=== PATIENT | female | born 1970 | race Caucasian/White ===

== ENCOUNTER 2016-04-18 13:03 | Outpatient (CLI) | payer OTHER ==
[~2016-04-18] VITALS: Ht 180.3 cm; Wt 93.2 kg
[~2016-04-18 13:03] MED LIST: CITA10SO5 GTB; DULO30CA47 PO; DULO60CA59 PO; ESTR1TAB80 PO; FLUO40CA PO; FOLI-49 PO; FURO20TA3 PO; GABA-528 PO; LEVO75TA5 PO; PROP40TA4 PO; SPIR50TA PO; THIA100T56 PO; TOPI25CA2 PO
[2016-04-18 13:22] VITALS: BP 117/65; PULSE 84; RESP 18; Ht 180.3 cm; Wt 93.2 kg
--- NOTE | 2016-04-18 13:54 | PN ---
Date/Time of Note Date/Time of Note DATE: 04/18/16 TIME: 13:47 Assessment/Plan Assessment/Plan Assessment/Plan [facility] Progress Note Date of Service: 04/18/16 Today's Assessment & Plan: Overall stable and doing well. No major abdominal complaints. No indication for acute surgical intervention. No worrisome lesion with careful short term follow up. Recommended back to routine liver care with Dr. Mcelroy. I also counseled her again regarding healthier lifestyle including ETOH cessation. With above assessment, I've recommended the following for today: 1. F/u with PCP 2. F/u with Dr. Mcelroy with routine liver surveillance 3. F/u with us prn Thank you again for your great care of this very pleasant young lady and her wonderful family. If there are any questions, please feel free to call me at [phone]. TOTAL VISIT TIME: 20 minutes of which more than half was spent in [id number] discussion with the patient as well as coordination of care between multiple physicians and providers. Disclaimer: Inadvertent spelling and grammatical errors are likely due to EHR/ dictation software use and do not reflect on the quality of delivered patient care. Also, please note that the electronic time recorded on this node does not necessarily reflect the actual time of the visit. Updated Clinical Summary: The patient is a very pleasant 45-year-old lady with past medical history significant for alcohol related cirrhosis, depression, hypothyroidism, and overweight, who is here with signs and symptoms consistent with early cirrhosis likely due to alcohol intake and new MRI lesion discovered May 2015 which is as of yet indeterminate in nature. Patient has had significant issues with alcohol as early as 2011. She has had significant psychologic trauma in the form of of her for 2009 and of her son 11/27/2011. She has had varices and banding October 2011. She has also had hospitalizations for liver disease in 2011. Ascites present. Hepatic encephalopathy present. Rectal bleeding present in 2012 requiring transfusions. She has also a slew of other medical issues. Recent MRI shows a lesion and we were kindly asked consult. Multidisciplinary review 09/21/2015 demonstrated lesion in the liver to be likely a vascular anomaly and not concerning for malignancy. Committee agreed with follow-up MRI within 6 months. 09/26/2015 colonoscopy to the cecum showed mild diverticulosis of the left side of the left side of the colon and moderate size internal hemorrhoids. Liver MRI Mar 2016 showed no focal liver lesions. Comorbidities: 1. Alcoholic cirrhosis, complicated by previous hepatic encephalopathy, ascites , hospitalizations, GI bleeding requiring interventions and transfusions, and abdominal discomfort 2. Still drinking beer 3. Depression 4. Hypothyroidism 5. Hepatitis A immune 6. Overweight (BMI 28.7; previously 27.23 July 2015) 7. Cholestasis 8. Cholelithiasis 9. Status post right knee surgery Nov 2007. Subjective: No major events or complaints since last visit; no major abd pain; no n/v/d; no sob or cp; + flatus; + BM and normal; + activity Objective: Vitals: AVSS (Please also see EHR) Exam: GENERAL: On exam, the patient was sitting up in a chair and appeared to be comfortable and in no acute distress. ABDOMEN: Soft, nontender and nondistended. There are no peritoneal signs or guarding. SKIN: Skin appears to be pink and feels warm to touch. NEUROLOGIC: Patient is awake, alert, and follows commands appropriately. Exam/Review of Systems Vital Signs Vitals Vital Signs Date Time Temp Pulse Resp B/P Pulse Ox O2 Delivery O2 Flow Rate FiO2 04/18/16 13:22 98.1 84 18 117/65 98 Room Air JOCE KING M.D. Apr 18, 2016 13:54
== END 2016-04-18 16:52 | disposition home or self-care (01) ==
LOC: HPC 13:03
PROVIDERS: ATTEND Transplant Surgery
DX: K70.31 Alcoholic cirrhosis of liver with ascites (principal); F10.10 Alcohol abuse, uncomplicated; Y90.9 Presence of alcohol in blood, level not specified; K72.90 Hepatic failure, unspecified without coma; F32.9 Major depressive disorder, single episode, unspecified; E03.9 Hypothyroidism, unspecified; B15.9 Hepatitis A without hepatic coma; K80.51 Calculus of bile duct without cholangitis or cholecystitis with obstruction; E66.3 Overweight; Z68.28 Body mass index [BMI] 28.0-28.9, adult
CPT/HCPCS: G0463

== ENCOUNTER → 2016-08-01 | Outpatient (CLI) | payer OTHER ==
--- NOTE | 2016-08-01 14:17 | RADRPT ---
PROCEDURE: XR pelvis/right hip. CLINICAL INDICATION: Hip pain TECHNIQUE: AP pelvis/AP and lateral right hip views performed COMPARISON: No prior studies are available for comparison. FINDINGS: There is mild to moderate bilateral hip osteoarthrosis. This is associated with joint space narrowin g, subchondral sclerosis and osteophytosis. There is normal mineralization. No fractures or osseou s lesions are identified. The soft tissues are unremarkable. IMPRESSION: Mild to moderate bilateral hip osteoarthrosis. RPTAT: HGDB .Williams Mason MD, MD Date Time Electronically viewed and signed by .Williams Mason MD, on 08/01/2016 14:16 .B/
== END | disposition home or self-care (01) ==
LOC: HKI 10:59
PROVIDERS: ATTEND Orthopaedic Surgery
DX: M25.551 Pain in right hip (principal)
CPT/HCPCS: 73502; Z7500; G0463

== ENCOUNTER 2016-09-11 12:33 | Inpatient (IN) | payer OTHER ==
[~2016-09-11] VITALS: Ht 180.3 cm; Wt 92.0 kg
[~2016-09-11 12:33] MED LIST changes: +CITA10SO GTB; -CITA10SO5 GTB
[2016-09-11] MEDS ORDERED: PANTOPRAZOLE IV 80 MG in SOD CHLORIDE 0.9% 100 ML IV STA (12:45)
[2016-09-11] MEDS ORDERED: CEFTRIAXONE 1 GM/50 ML (PMX) 50 ML IVPB STA (12:45)
[2016-09-11] MEDS ORDERED: PANTOPRAZOLE IV 80 MG in SOD CHLORIDE 0.9% 100 ML IVPB STA (12:45)
[2016-09-11] MEDS ORDERED: ACETAMINOPHEN 325 MG TAB PO STA (12:45)
[2016-09-11] MEDS ORDERED: OCTREOTIDE 50 MCG in SOD CHLORIDE 0.9% 25 ML IVPB STA (12:45)
[2016-09-11] MEDS ORDERED: SODIUM CHLORIDE 0.9% 1L BAG IV* STA (12:45)
[2016-09-11] MEDS ORDERED: OCTREOTIDE 500 MCG in SOD CHLORIDE 0.9% 49 ML IV STA (12:45)
[2016-09-11 13:09] VITALS: TEMP 99.8
[2016-09-11 13:19] LABS: ABNORMAL IP MESSAGE 1; BASOPHIL # 0.1 10^3/ul (0.0-0.1); BASOPHILS % 0.8 % (0.0-2.0); EOSINOPHILS # 0.3 10^3/ul (0.0-0.5); EOSINOPHILS % 4.1 % (0.0-7.0); HEMATOCRIT 32.9 % (37.0-47.0); HEMOGLOBIN 10.9 g/dl (12.0-16.0); LYMPHOCYTES % 15.9 % (15.0-51.0); MEAN CORPUSCULAR HEMOGLOBIN 39.4 pg (29.0-33.0); MEAN CORPUSCULAR HGB CONC 33.1 g/dl (32.0-37.0); MEAN CORPUSCULAR VOLUME 118.8 fl (82.0-101.0); MEAN PLATELET VOLUME 10.9 fl (7.4-10.4); MONOCYTE # 0.7 10^3/ul (0.3-0.9); MONOCYTES % 11.7 % (0.0-11.0); NEUTROPHIL # 4.1 10^3/ul (1.6-7.5); NEUTROPHILS % 66.4 % (39.0-77.0); PLATELET COUNT 83 10^3/UL (140-415); RED BLOOD COUNT 2.77 10^6/ul (4.20-5.40); RED CELL DISTRIBUTION WIDTH 14.6 % (11.5-14.5); WHITE BLOOD COUNT 6.2 10^3/ul (4.8-10.8)
[2016-09-11 13:20] LABS: POSITIVE DIFF @See below
--- NOTE | 2016-09-11 13:21 | RADRPT ---
PROCEDURE: Chest Radiograph. CLINICAL INDICATION: Hematemesis TECHNIQUE: Single frontal chest radiograph. COMPARISON: None available FINDINGS: The cardiomediastinal silhouette is within normal limits. No infiltrate or effusion is seen. Th e bones are intact. IMPRESSION: 1. Unremarkable chest radiograph. RPTAT: AA .Jv Pathak MD, MD Date Time Electronically viewed and signed by .Jv Pathak MD, on 09/11/2016 13:20 .B/
--- NOTE | 2016-09-11 13:29 | ERA ---
ER Documentation Chief Complaint Date/Time DATE: 09/11/16 TIME: 13:26 Chief Complaint vomiting blood and blood in the stoo, hx cirrhosis of the liver, jaundice HPI This is a 46-year-old female history of alcoholic cirrhosis, history of esophageal varices status post banding in 2012 who presents with multiple complaints. She states approximately 5 days ago she had multiple episodes of hematemesis. Since then she has had melanotic stool. She does describe worsening jaundice. She denies any fevers or chills, no abdominal pain, no headache. She does note easy bruising. ROS All systems reviewed and are negative except as per history of present illness. Medications Home Meds Reported Medications Lurasidone Hcl (LATUDA) 20 Mg Tablet, 20 MG PO DAILY, #30 TAB 09/11/16 Topiramate* (Topiramate*) 100 Mg Tablet, 100 MG PO BID, TAB 09/11/16 Pantoprazole* (Protonix*) 40 Mg Tablet.dr, 40 MG PO DAILY, TAB 09/11/16 Levothyroxine Sodium* (Levoxyl*) 88 Mcg Tablet, 88 MCG PO BEFORE BREAKFAST, #30 TAB 09/11/16 Duloxetine Hcl* (Duloxetine Hcl*) 60 Mg Capsule.dr, 60 MG PO DAILY, #30 CAP 09/19/15 Propranolol Hcl* (Propranolol Hcl*) 40 Mg Tablet, 40 MG PO BID, TAB 09/19/13 Furosemide* (Furosemide*) 20 Mg Tablet, 20 MG PO DAILY 12/04/12 Folic Acid* (Folic Acid*) 1 Mg Tablet, 1 MG PO 12/04/12 Discontinued Reported Medications Estrogen,Conj-Medroxyprogest Acet (Prempro) 0.3-1.5 Mg Tablet, 1 TAB PO DAILY, TAB 09/19/15 Fluoxetine Hcl* (Fluoxetine Hcl*) 40 Mg Capsule, 60 MG PO DAILY, CAP 09/19/15 Gabapentin* (Gabapentin*) 800 Mg Tablet, 900 MG PO TID, #90 TAB 09/19/15 Topiramate* (Topiramate*) 25 Mg Cap.sprink, 25 MG PO DAILY, CAP 09/19/15 Levothyroxine Sodium* (Levothyroxine Sodium*) 75 Mcg Tablet, 75 MCG PO BEFORE BREAKFAST, #30 TAB 09/19/15 Duloxetine Hcl* (Duloxetine Hcl*) 30 Mg Capsule.dr, 30 MG PO DAILY, CAP 12/30/13 Citalopram Hydrobromide (Citalopram) 10 Mg/5 Ml Solution, 20 MG GTB DAILY, ML 12/30/13 Spironolactone* (Aldactone*) 50 Mg Tablet, 50 MG PO DAILY, TAB 12/30/13 Thiamine* (Vitamin B-1*) 100 Mg Tablet, 100 MG PO DAILY, TAB 09/19/13 Allergies Allergies: Coded Allergies: naproxen (Verified Allergy, Severe, 09/11/16) codeine (Verified Allergy, Mild, NAUSEA, 09/11/16) morphine (Verified Allergy, Unknown, NAUSEA, 09/11/16) PMhx/Soc History of Surgery: Yes (RIGHT KNEE) Anesthesia Reaction: No Hx Neurological Disorder: Yes (NEUROPATHY) Hx Respiratory Disorders: No Hx Cardiac Disorders: No Hx Psychiatric Problems: Yes (DEPRESSION/ANCIETY) Hx Miscellaneous Medical Probl: Yes (CIRRHOSIS , ESOPHOGEAL VARCIES , ANEMIA ) Hx Alcohol Use: Yes (DAILY BEER) Hx Substance Use: No Hx Tobacco Use: No (QUIT 08/27/16) Smoking Status: Former smoker FmHx Family History: No diabetes Physical Exam Vitals Vital Signs Date Time Temp Pulse Resp B/P Pulse Ox O2 Delivery O2 Flow Rate FiO2 09/11/16 13:09 99.8 105 17 115/73 97 Room Air 09/11/16 12:34 100.2 106 18 117/58 98 Physical Exam General: Extremely jaundice Head: Normocephalic, atraumatic. Eyes: Pupils equally reactive, EOM intact, scleral icterus ENT: Moist mucous membranes Neck: Supple, no lymphadenopathy Respiratory: Lungs clear bilaterally, no distress Cardiovascular: RRR, no murmurs, rubs, or gallops Abdominal: Soft, non-tender, non-distended, no peritoneal signs : Deferred MSK: No edema, no unilateral swelling, 5/5 strength Neurologic: Alert and oriented, moving all extremities, normal speech, no focal weakness, no cerebellar signs Skin: Mild purpura and ecchymoses noted over extremities Psych: Normal mood Result Diagram: 09/11/16 1300 09/11/16 1300 Results 24 hrs Laboratory Tests Test 09/11/16 13:00 White Blood Count 6.210^3/ul Red Blood Count 2.7710^6/ul Hemoglobin 10.9g/dl Hematocrit 32.9% Mean Corpuscular Volume 118.8fl Mean Corpuscular Hemoglobin 39.4pg Mean Corpuscular Hemoglobin Concent 33.1g/dl Red Cell Distribution Width 14.6% Platelet Count 8310^3/UL Mean Platelet Volume 10.9fl Neutrophils % 66.4% Lymphocytes % 15.9% Monocytes % 11.7% Eosinophils % 4.1% Basophils % 0.8% Nucleated Red Blood Cells % 0.0/100WBC Neutrophils # 4.110^3/ul Lymphocytes # 1.010^3/ul Monocytes # 0.710^3/ul Eosinophils # 0.310^3/ul Basophils # 0.110^3/ul Nucleated Red Blood Cells # 0.010^3/ul Prothrombin Time 16.4Sec Prothrombin Time Ratio 1.3 INR International Normalized Ratio 1.31 Activated Partial Thromboplast Time 33.3Sec Sodium Level 143mmol/L Potassium Level 2.5mmol/L Chloride Level 96mmol/L Carbon Dioxide Level 28mmol/L Anion Gap 22 Blood Urea Nitrogen 11mg/dl Creatinine 0.94mg/dl Glucose Level 85mg/dl Lactic Acid Level 2.4mmol/L Calcium Level 9.3mg/dl Total Bilirubin 24.9mg/dl Direct Bilirubin 21.90mg/dl Indirect Bilirubin 3.0mg/dl Aspartate Amino Transf (AST/SGOT) 208IU/L Alanine Aminotransferase (ALT/SGPT) 79IU/L Alkaline Phosphatase 584IU/L Troponin I < 0.012ng/ml Total Protein 9.3g/dl Albumin 3.8g/dl Globulin 5.50g/dl Albumin/Globulin Ratio 0.69 Current Medications Medications (Trade) Dose Ordered Sig/Pravin Route PRN Reason Start Time Stop Time Status Last Admin Dose Admin Pantoprazole 80 mg/Sodium Chloride 100 ml @ 400 mls/hr ONCE STAT IVPB 09/11/16 12:45 09/11/16 12:59 DC 09/11/16 14:06 Pantoprazole 80 mg/Sodium Chloride 100 ml @ 10 mls/hr ONCE STAT IV 09/11/16 12:45 09/11/16 22:44 Octreotide Acetate 50 mcg/ Sodium Chloride 26 ml @ 100 mls/hr Q16M STAT IVPB 09/11/16 12:45 09/11/16 13:00 DC 09/11/16 14:06 Octreotide Acetate/Sodium Chloride (Sandostatin/NS) 50 ml @ 5 mls/hr ONCE STAT IV 09/11/16 12:45 09/11/16 22:44 Acetaminophen 650 mg 650 mg ONCE STAT PO 09/11/16 12:45 09/11/16 12:48 DC Ceftriaxone Sodium (Rocephin) 50 ml @ 100 mls/hr ONCE STAT IVPB 09/11/16 12:45 09/11/16 13:14 DC 09/11/16 13:45 Sodium Chloride 2850 ml 2,850 ml BOLUS OVER 2 HOURS STAT IV* 09/11/16 12:45 09/11/16 12:48 DC 09/11/16 12:45 Potassium Chloride (KCl 10 MEQ/50 ML SW) 50 ml @ 50 mls/hr Q1H IVPB 09/11/16 14:30 09/11/16 17:29 09/11/16 14:22 Ondansetron HCl (Zofran Inj) 4 mg BRIDGE ORDER PRN IV NAUSEA AND/OR VOMITING 09/11/16 15:00 09/12/16 14:59 Acetaminophen 650 mg 650 mg ER BRIDGE PRN PO MILD PAIN/FEVER 09/11/16 15:00 09/12/16 14:59 Potassium Chloride (KCl 40 MEQ/250 ML NS) 250 ml @ 62.5 mls/hr Q4H IVPB 09/11/16 15:00 09/11/16 22:59 UNV Procedures/MDM EKG, MONITORS, & DIAGNOSTIC IMAGING: EKG: I reviewed and interpreted a 12-lead EKG. Rhythm: Normal sinus rhythm Ectopy: None Intervals: No abnormalities ST segments: No elevations or depressions T waves: No contiguous inversions Chest x-ray: I reviewed and interpreted a 1 view of the chest Mediastinum: No enlargement Cardiac silhouette: No cardiomegaly Airspace: Clear lung gardner bilaterally without evidence of pneumothorax Bones: No evidence of fracture LAB INTERPRETATION: No significant leukocytosis, hemoglobin of 10 thrombocytopenia of 83, hypokalemia of 2.5, lactic acidosis of 2.4, significant direct hyperbilirubinemia of 21, transaminitis, negative troponin MEDICAL DECISION MAKING: The patient presents with signs and symptoms consistent with likely subacute upper GI hemorrhage in the setting of esophageal varices. However the patient is at risk for persistent bleeding. I believe she will benefit from inpatient hospitalization, GI consultation and semi-urgent endoscopy. The patient will be started on PPI, octreotide and given antibiotics. The patient did have a low -grade fever at triage however rechecked without intervention and is normal. Low concern for sepsis, no evidence of SBP. ER COURSE: 2 large-bore peripheral IVs were inserted. The patient was given a 30 cc/kg bolus of saline. The patient remains hemodynamically stable in the emergency room. The patient does not have a fever. The patient has been given medications as documented above including PPI, octreotide, empiric antibiotics. Lactic acid is likely in the setting of dehydration rather than sepsis. Potassium will be repleted through the IV. The patient only has [address] Montgomery was notified he agrees with the plan of care. I kept the patient and/or family informed of laboratory and diagnostic imaging results throughout the emergency room course. DISPOSITION PLAN: Medical surgical admission for further management of subacute upper GI bleed. CONSULTATION: Accepting care team and consultations: I discussed the current laboratory data, diagnostic imaging and emergency care provided. Admitting team: Dr. Seth Admitting team indication: Insurance directed Consulting services: [employer] Dr. Montgomery Prior to admission the patient is hemodynamically stable and resting comfortably. Departure Diagnosis: Primary Impression: Upper GI hemorrhage Additional Impressions: History of esophageal varices History of cirrhosis Thrombocytopenia Hypokalemia Lactic acidosis Condition: HARINI Chu MD Sep 11, 2016 13:29
[2016-09-11 13:38] LABS: INR 1.31; PROTIME 16.4 Sec (12.2-14.2); PT RATIO 1.3
[2016-09-11 13:39] LABS: PARTIAL THROMBOPLASTIN TIME 33.3 Sec (25.0-35.0)
[2016-09-11 13:43] LABS: ALANINE AMINOTRANSFERASE 79 IU/L (13-69); ALBUMIN 3.8 g/dl (3.3-4.9); ALBUMIN/GLOBULIN RATIO 0.69; ALKALINE PHOSPHATASE 584 IU/L (42-121); ANION GAP 22 (8-16); ASPARTATE AMINO TRANSFERASE 208 IU/L (15-46); BILIRUBIN,TOTAL 24.9 mg/dl (0.2-1.3); BLOOD UREA NITROGEN 11 mg/dl (7-20); CALCIUM 9.3 mg/dl (8.4-10.2); CARBON DIOXIDE 28 mmol/L (21-31); CHLORIDE 96 mmol/L (97-110); CREATININE 0.94 mg/dl (0.44-1.00); GLUCOSE 85 mg/dl (70-220); SODIUM 143 mmol/L (135-144); TOTAL PROTEIN 9.3 g/dl (6.1-8.1)
[2016-09-11 13:57] LABS: POTASSIUM 2.5 mmol/L (3.5-5.1)
[2016-09-11 14:01] LABS: TROPONIN-I < 0.012 ng/ml (0.00-0.12)
[2016-09-11] MEDS ORDERED: PANT40TA3 PO (14:13)
[2016-09-11] MEDS ORDERED: LEVO88TA42 PO (14:13)
[2016-09-11] MEDS ORDERED: TOPI-25 PO (14:14)
[2016-09-11] MEDS ORDERED: LURA20TA PO (14:15)
[2016-09-11] MEDS: POTASSIUM CHLORIDE 50 ML IVPB SCH ×3 (14:22→18:53)
--- NOTE | 2016-09-11 14:35 | HP ---
Date/Time of Note Date/Time of Note DATE: 09/11/16 TIME: 14:35 Assessment/Plan VTE Prophylaxis VTE Prophylaxis Intervention: SCD's Assessment/Plan Assessment/Plan 46 yo F with pmhx alcoholic cirrhosis cb EVs warranting banding presents with c/ o dark stools, hematemesis and jaundice. #hematemesis/dark stools: concern for GIB, possible EV bleed -GI following, plan for EGD in AM -cont rocephin (1g/day x 7 days total), PPI drip, somatostatin drip as per GI rec -defer transfusion as long as hgb>7-->BID CBCs #jaundice: suspect 2/2 hyperbilirubinemia likely 2/2 alcoholic cirrhosis -check liver US -start high dose prednisolone (40 mg daily, x 28 days) as Maddreys Discriminant Function score 40.6 consider checking Lille score/rechecking DF in 1 week to monitor for improvement from steroids #hypokalemia: suspect from vomiting -replete -hold lasix #cirrhosis -cont home beta angela of note, bb may increase risk to pt of kidney disease given her advanced alcoholic cirrhosis however given pt is here for possible EVs suspect benefit of this medication outweighs risk at this time. defer to GI -hold lasis given hypokalemia. will likely resume tomorrow -RD eval #R foot/ankle pain sp fall -xrs ordered, possible PT eval #alcoholism: last drink 1 week ago -cessation advised -cont home folic acid #h/o anxiety -cont home Remeron, cymbalta, latuda #h/o hypothyroid: cont home synthroid DVT prophx: SCDs only given concern for variceal bleed NPO pending EGD HPI/ROS Admit Date/Time Admit Date/Time Hx of Present Illness 46 yo F with pmhx alcoholic cirrhosis c/b EVs requiring banding presents with c/ o 1 week of new jaundice and 5 days of dark stools and hematemesis. +nausea. Also reports mild increase in abd distension. +itching since jaundice onset. +subjective fevers at home, no chills. Pt states her last drink of alcohol was 7 days [employer], before that was drinking 6 beers/day. Also states she tripped on her R ankle last week at home and has been unable to weight bear on that foot/ankle since. PMH/Family/Social Past Medical History alcohol abuse, cirrhosis cb EV warranting banding Social History Smoking Status: Former smoker Exam/Review of Systems Vital Signs Vitals Vital Signs Date Time Temp Pulse Resp B/P Pulse Ox O2 Delivery O2 Flow Rate FiO2 09/11/16 13:09 99.8 105 17 115/73 97 Room Air Exam Exam jaundice and scleral icterus EOMI MMM no asterixis no mrg lungs clear abd soft, mild distension no L ankle edema, R ankle and forefoot with sig bruising and swelling, no sig ttp responds to questions appropriately labs reviewed. bilis markedly elevated, +transaminitis. hgb >7 [facility] Discriminant Function: 40.6 Labs Result Diagram: 09/11/16 1300 09/11/16 1300 Medications Medications Current Medications Potassium Chloride (KCl 10 MEQ/50 ML SW) 50 ml @ 50 mls/hr Q1H IVPB Last administered on 09/11/16t 14:22; Admin Dose 50 MLS/HR; Start 09/11/16 at 14:30; Stop 09/11/16 at 17:29 DK CISSE MD Sep 11, 2016 14:35
[2016-09-11] MEDS ORDERED: ACETAMINOPHEN 325 MG TAB PO PRN (15:00)
[2016-09-11] MEDS ORDERED: NACL 0.9% 3 ML SYG IV SCH (15:00)
[2016-09-11] MEDS ORDERED: ONDANSETRON 4 MG TAB PO PRN (15:00)
[2016-09-11] MEDS ORDERED: MAGNESIUM HYDROXIDE 30ML CUP PO PRN (15:00)
[2016-09-11] MEDS ORDERED: DOCUSATE SODIUM 100 MG CAP PO PRN (15:00)
[2016-09-11] MEDS ORDERED: ONDANSETRON 4 MG INJ IV PRN (15:00)
[2016-09-11] MEDS ORDERED: POTASSIUM CHLORIDE 250 ML IVPB SCH (15:00)
[2016-09-11 16:30] VITALS: PULSE 80
[2016-09-11] MEDS ORDERED: MIRT15TA5 PO (16:58)
[2016-09-11 17:00] VITALS: BP 98/62; PULSE 80; RESP 17
[2016-09-11] MEDS ORDERED: MIRTAZAPINE 15 MG TAB PO PRN (17:00)
[2016-09-11 17:15] VITALS: Ht 180.3 cm; Wt 92.0 kg
--- NOTE | 2016-09-11 17:17 | CONS ---
Date/Time of Note Date/Time of Note DATE: 09/11/16 TIME: 16:59 Assessment/Plan Assessment/Plan Additional Assessment/Plan Assessment * Hypokalemia * Hematemesis R/O bleeding esophageal varices vs bleeding peptic ulcer vs others * Jaundice * Cirrhosis,liver * HX of alcoholism Plan * EGD tomorrow risks and benefit explained to patient and agreed with the planned procedure * Octreotide drip * Protonix drip * Monitor hemoglobin and hematocrit and transfuse per protocol * trend liver enzymes * further orders will depend on clinical course Consultation Date/Type/Reason Admit Date/Time Date of Consultation: Sep 11, 2016 Type of Consultation: Gastroenterology Reason for Consultation hematemesis/jaundice Referring Provider: DK CISSE MD Hx of Present Illness 46 year old female with past medical history of alcoholic liver cirrhosis, history of esophageal varices presented in the emergency room complaining of hematemesis and jaundice.Patient was apparently well until 2 weeks ago when she develop progressive darkening of sclera progressing to jaundice,with associated on and off hematemesis about 1/3 cup per episode.She denies any history of travel,fever ,hematochezia nor abdominal pain.She also claims that 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 her for liver cirrhosis,had EGD last year with variceal banding,took latuda last month.Emergency room course revealed hemoglobin 10.9,hematocrit 32.9,total bilirubin 24.9,lactic acid 2.4 ,K 2.5 AST 308,ALT 79,alkaline phosphatase 501 Constitutional: improved, no complaints Eyes: no complaints ENT: no complaints Respiratory: no complaints Cardiovascular: no complaints Gastrointestinal: blood, flatus, nausea, pain, vomiting Genitourinary: no complaints Musculoskeletal: no complaints Skin: other (jaundice) Neurologic: no complaints Endocrine: no complaints Lymphatic: no complaints Psychological: nl mood/affect, no complaints Immunologic: no complaints Past Medical History Medical History: GI bleed, other (cirrhosis) Past Surgical History Past Surgical Hx: endoscopy Family History Significant Family History: no pertinent family hx Social History Smoking Status: Former smoker Exam/Review of Systems Vital Signs Vitals Vital Signs Date Time Temp Pulse Resp B/P Pulse Ox O2 Delivery O2 Flow Rate FiO2 09/11/16 16:30 80 09/11/16 16:01 20 112/66 98 Room Air 09/11/16 13:09 99.8 Exam Constitutional: alert, oriented, well developed Psych: nl mood/affect, no complaints Head: atraumatic, normocephalic Eyes: PERRL, icteric, nl conjunctiva ENMT: nl nasal mucosa & septum Neck: non-tender, supple Respiratory: clear to auscultation, normal air movement Cardiovascular: nl pulses, regular rate and rhythm Gastrointestinal: nl liver, spleen, non-tender, soft Musculoskeletal: nl extremities to inspection, nl gait and stance Extremities: normal pulses Neurological: nl mental status, nl speech, nl strength Skin: nl turgor, other (jaundice), No rash or lesions Lymph: nl lymph nodes Results Result Diagram: 09/11/16 1300 09/11/16 1300 Results 24 hrs Laboratory Tests Test 09/11/16 13:00 09/11/16 15:00 White Blood Count 6.2 Red Blood Count 2.77 L Hemoglobin 10.9 L Hematocrit 32.9 L Mean Corpuscular Volume 118.8 H Mean Corpuscular Hemoglobin 39.4 H Mean Corpuscular Hemoglobin Concent 33.1 Red Cell Distribution Width 14.6 H Platelet Count 83 L Mean Platelet Volume 10.9 H Neutrophils % 66.4 Lymphocytes % 15.9 Monocytes % 11.7 H Eosinophils % 4.1 Basophils % 0.8 Nucleated Red Blood Cells % 0.0 Neutrophils # 4.1 Lymphocytes # 1.0 Monocytes # 0.7 Eosinophils # 0.3 Basophils # 0.1 Nucleated Red Blood Cells # 0.0 Prothrombin Time 16.4 H Prothrombin Time Ratio 1.3 INR International Normalized Ratio 1.31 Activated Partial Thromboplast Time 33.3 Sodium Level 143 Potassium Level 2.5 *L Chloride Level 96 L Carbon Dioxide Level 28 Anion Gap 22 H Blood Urea Nitrogen 11 Creatinine 0.94 Glucose Level 85 Lactic Acid Level 2.4 *H 1.3 Calcium Level 9.3 Total Bilirubin 24.9 H Direct Bilirubin 21.90 *H Indirect Bilirubin 3.0 H Aspartate Amino Transf (AST/SGOT) 208 H Alanine Aminotransferase (ALT/SGPT) 79 H Alkaline Phosphatase 584 H Troponin I < 0.012 Total Protein 9.3 H Albumin 3.8 Globulin 5.50 H Albumin/Globulin Ratio 0.69 Medications Medications Current Medications Potassium Chloride (KCl 10 MEQ/50 ML SW) 50 ml @ 50 mls/hr Q1H IVPB Last administered on 09/11/16t 15:36; Admin Dose 50 MLS/HR; Start 09/11/16 at 14:30; Stop 09/11/16 at 17:29 Duloxetine HCl (Cymbalta) 60 mg DAILY PO ; Start 09/12/16 at 09:00 Folic Acid (Folic Acid) 1 mg DAILY PO ; Start 09/12/16 at 09:00 Propranolol HCl (Inderal) 40 mg BID PO ; Start 09/11/16 at 21:00 Topiramate (Topamax) 100 mg BID PO ; Start 09/11/16 at 21:00 Miscellaneous Information 20 mg DAILY PO ; Start 09/12/16 at 09:00; Status UNV Ondansetron HCl (Zofran Tab) 4 mg Q6H PRN PO NAUSEA AND/OR VOMITING; Start at 15:00 Ondansetron HCl (Zofran Inj) 4 mg Q6H PRN IV NAUSEA AND/OR VOMITING; Start at 15:00 Acetaminophen/ Hydrocodone Bitart ([place] (5/325)) 1 tab Q6H PRN PO MODERATE PAIN LEVEL 4-6; Start 09/11/16 at 15:00 Morphine Sulfate (morphine) 2 mg Q4H PRN IV SEVERE PAIN LEVEL 7-10; Start 09/11 at 15:00 Docusate Sodium (Colace) 100 mg Q12H PRN PO CONSTIPATION; Start 09/11/16 at 15: 00 Magnesium Hydroxide (Milk Of Mag) 30 ml DAILY PRN PO CONSTIPATION; Start at 15:00 MARGY DEL CID MD Sep 11, 2016 17:10
--- NOTE | 2016-09-11 18:12 | RADRPT ---
PROCEDURE: US Abdomen and Retroperitoneum. CLINICAL INDICATION: History of cirrhosis. Jaundice. TECHNIQUE: Multiple real-time longitudinal and transverse images were acquired of the patient's ab domen and retroperitoneum utilizing a curved array transducer. COMPARISON: No prior studies are available for comparison. FINDINGS: The liver is normal in size and diffusely heterogeneous in echogenicity. The liver has a normal smo oth surface. There is no focal hepatic lesion. Color Doppler and pulsed Doppler sonography demonstra te normal antegrade flow in the portal vein. Multiple gallstones are present in the gallbladder. There is no gallbladder wall thickening or flui d around the gallbladder. The bile ducts are normal with the common bile duct measuring 3.8 mm in diameter. The spleen is enlarged measuring 14.8 x 5.8 cm. There is no focal splenic lesion. The pancreas is partially seen and is unremarkable. There is no free fluid. The right kidney measures 11.7 x 4.6 x 5.4 cm and the left kidney measures 10.3 x 4.2 x 4.5 cm. There is no renal mass. There is no hydronephrosis or calculus. The abdominal aorta is not dilated. The inferior vena cava is unremarkable. IMPRESSION: 1. Diffusely heterogeneous liver which may indicate cirrhosis. No focal hepatic lesion. 2. Gallstones in the gallbladder. No evidence of cholecystitis. 3. Splenomegaly. 4. Otherwise unremarkable ultrasound of the abdomen and retroperitoneum. RPTAT: QQ .Esau Soto MD, Date Time Electronically viewed and signed by .Esau Soto MD, on 09/11/2016 18:12 .R/
[2016-09-11] MEDS: PANTOPRAZOLE IV 80 MG in SOD CHLORIDE 0.9% 100 ML IV SCH (18:54)
[2016-09-11] MEDS: predniSOLONE 5 MG TAB PO SCH (18:55)
[2016-09-11] MEDS: OCTREOTIDE 1 MG in SOD CHLORIDE 0.9% 95 ML IV SCH (18:55)
[2016-09-11 20:06] VITALS: PULSE 79
[2016-09-11 20:13] VITALS: BP 112/68; RESP 20
[2016-09-11] MEDS: PROPRANOLOL 40 MG TAB PO SCH (20:57)
[2016-09-11] MEDS: TOPIRAMATE 100 MG TAB PO SCH (20:58)
[2016-09-11 21:10] LABS: ABNORMAL IP MESSAGE 1; BASOPHILS % 0.7 % (0.0-2.0); EOSINOPHILS # 0.2 10^3/ul (0.0-0.5); EOSINOPHILS % 3.4 % (0.0-7.0); HEMATOCRIT 29.2 % (37.0-47.0); HEMOGLOBIN 9.7 g/dl (12.0-16.0); LYMPHOCYTES # 0.6 10^3/ul (0.8-2.9); LYMPHOCYTES % 14.1 % (15.0-51.0); MEAN CORPUSCULAR HEMOGLOBIN 40.2 pg (29.0-33.0); MEAN CORPUSCULAR HGB CONC 33.2 g/dl (32.0-37.0); MEAN CORPUSCULAR VOLUME 121.2 fl (82.0-101.0); MEAN PLATELET VOLUME 11.2 fl (7.4-10.4); MONOCYTE # 0.5 10^3/ul (0.3-0.9); MONOCYTES % 10.5 % (0.0-11.0); NEUTROPHIL # 3.1 10^3/ul (1.6-7.5); NEUTROPHILS % 70.4 % (39.0-77.0); PLATELET COUNT 52 10^3/UL (140-415); RED BLOOD COUNT 2.41 10^6/ul (4.20-5.40); RED CELL DISTRIBUTION WIDTH 14.8 % (11.5-14.5); WHITE BLOOD COUNT 4.4 10^3/ul (4.8-10.8)
[2016-09-11 21:12] LABS: POSITIVE DIFF @See below
--- NOTE | 2016-09-11 22:30 | RADRPT ---
AMENDMENT: 09/11/2016 10:31:06 PM Gaudencio Muniz M.D Please note that the recommendation and the second impression should correctly read: If there is co ncern for talocalcaneal dislocation, CT is recommended as follow up. PROCEDURE: XR right Ankle. CLINICAL INDICATION: Status post fall. Pain. TECHNIQUE: AP possible midtarsal dislocation. lateral views of the right ankle were performed. COMPARISON: None. FINDINGS: No gross evidence of fracture. There is rotation at the level of the talocalcaneal joint raising th e question of talocalcaneal dislocation. This may be positional in nature. Oblique views or CT may be considered for further evaluation. Correlate with direct inspection. The bones are normal mineralization without cortical destruction. The talar dome is intact and ankle joint mortise well maintained. The remaining bones of the foot an d ankle are unremarkable. Mild periarticular soft tissue swelling. IMPRESSION: 1. No evidence of fracture. Mild periarticular soft tissue swelling. 2. There is rotation at the level of the talocalcaneal joint. Correlate with direct inspection. T here is concern for talocalcaneal dislocation, CT is recommended as follow up. RPTAT:AAJJ Physician Ty Date Time Electronically viewed and signed by Physician Ty on 09/11/2016 22:33 MAJO/
--- NOTE | 2016-09-11 22:32 | RADRPT ---
PROCEDURE: XR right foot. CLINICAL INDICATION: Status post fall. Pain. TECHNIQUE: AP possible midtarsal dislocation. lateral views of the right ankle were performed. COMPARISON: None. FINDINGS: No gross evidence of fracture. There is rotation at the level of the talocalcaneal joint raising th e question of talocalcaneal dislocation. This may be positional in nature. Correlate with direct i nspection. The remaining bones of the foot and ankle are unremarkable. The bones are normal mineralization without cortical destruction. Mild periarticular soft tissue swelling. IMPRESSION: 1. No evidence of fracture. Mild periarticular soft tissue swelling. 2. There is rotation at the level of the talocalcaneal joint. Correlate with direct inspection. I f there is concern for talocalcaneal dislocation, CT is recommended as follow up .The remaining bone s of the foot are unremarkable. RPTAT:AAJJ Physician Ty Date Time Electronically viewed and signed by Physician Ty on 09/11/2016 22:31 MAJO/
[2016-09-11] MEDS: HYDROCODONE/APAP (5/325) TAB PO PRN (22:37)
[2016-09-12] VITALS (20 sets, daily range): BP systolic 99–156; BP diastolic 58–95; PULSE 72–90; RESP 16–33
[2016-09-12] MEDS: OCTREOTIDE 1 MG in SOD CHLORIDE 0.9% 95 ML IV SCH (05:31)
[2016-09-12] MEDS: PANTOPRAZOLE IV 80 MG in SOD CHLORIDE 0.9% 100 ML IV SCH ×3 (05:31→19:34)
[2016-09-12] MEDS: LEVOTHYROXINE 88 MCG TAB PO SCH (05:37)
[2016-09-12 08:11] LABS: ABNORMAL IP MESSAGE 1; BASOPHILS % 0.3 % (0.0-2.0); EOSINOPHILS % 0.3 % (0.0-7.0); HEMOGLOBIN 9.9 g/dl (12.0-16.0); LYMPHOCYTES # 0.5 10^3/ul (0.8-2.9); LYMPHOCYTES % 12.8 % (15.0-51.0); MEAN CORPUSCULAR HEMOGLOBIN 38.7 pg (29.0-33.0); MEAN CORPUSCULAR HGB CONC 31.9 g/dl (32.0-37.0); MEAN CORPUSCULAR VOLUME 121.1 fl (82.0-101.0); MEAN PLATELET VOLUME 11.3 fl (7.4-10.4); MONOCYTE # 0.2 10^3/ul (0.3-0.9); MONOCYTES % 4.7 % (0.0-11.0); NEUTROPHIL # 2.9 10^3/ul (1.6-7.5); NEUTROPHILS % 81.1 % (39.0-77.0); PLATELET COUNT 58 10^3/UL (140-415); RED BLOOD COUNT 2.56 10^6/ul (4.20-5.40); RED CELL DISTRIBUTION WIDTH 14.6 % (11.5-14.5); WHITE BLOOD COUNT 3.6 10^3/ul (4.8-10.8)
[2016-09-12 08:21] LABS: POSITIVE DIFF @See below
[2016-09-12] MEDS: [UNRECOGNIZED DRUG - REMARK] XX SCH ×2 (08:25→16:30)
[2016-09-12] MEDS: CEFTRIAXONE 1 GM/50 ML (PMX) 50 ML IVPB SCH (08:31)
[2016-09-12] MEDS: FOLIC ACID 1 MG TAB PO SCH (08:34)
[2016-09-12] MEDS: predniSOLONE 5 MG TAB PO SCH (08:35)
[2016-09-12] MEDS: TOPIRAMATE 100 MG TAB PO SCH ×2 (08:35→20:49)
[2016-09-12] MEDS: DULOXETINE 30 MG CAP DR PO SCH (08:36)
[2016-09-12 08:37] LABS: ALBUMIN 3.5 g/dl (3.3-4.9); ALBUMIN/GLOBULIN RATIO 0.72; BILIRUBIN,INDIRECT 2.9 mg/dl (0-1.1); CALCIUM 8.8 mg/dl (8.4-10.2); CREATININE 0.97 mg/dl (0.44-1.00); POTASSIUM 3.2 mmol/L (3.5-5.1); TOTAL PROTEIN 8.3 g/dl (6.1-8.1)
[2016-09-12] MEDS: PROPRANOLOL 40 MG TAB PO SCH ×2 (08:37→20:51)
[2016-09-12 08:43] LABS: BILIRUBIN,DIRECT 21.6 mg/dl (0.00-0.20); BILIRUBIN,TOTAL 24.5 mg/dl (0.2-1.3)
[2016-09-12] MEDS ORDERED: PANTOPRAZOLE (EC) 40 MG TAB PO SCH (09:00)
[2016-09-12] MEDS ORDERED: NON-FORMULARY/PATIENT OWN MED (Lurasidone Hcl (Latuda) 20 MG) PO SCH (09:00)
[2016-09-12] MEDS ORDERED: POTASSIUM CHLORIDE 250 ML IVPB ONE (09:00)
[2016-09-12] MEDS: ONDANSETRON 4 MG INJ IV PRN ×2 (10:48→18:00)
--- NOTE | 2016-09-12 15:53 | PN ---
Date/Time of Note Date/Time of Note DATE: 09/12/16 TIME: 15:46 Assessment/Plan VTE Prophylaxis VTE Prophylaxis Intervention: SCD's Lines/Catheters Urinary Cath still in place: No Assessment/Plan Assessment/Plan 1. Upper GI bleeding on protonix, EGD per GI 2. Jaundice, likely obstructive with high direct jacob, MRCP 3. Alcoholic liver disease 4. Alcoholism, watch for withdrawal 5. foot/ankle pain sp fall 6. hypothyroidism, on synthroid DVT prophx: SCD Subjective 24 Hr Interval Summary Free Text/Dictation epigastric pain. no vomiting Exam/Review of Systems Vital Signs Vitals Vital Signs Date Time Temp Pulse Resp B/P Pulse Ox O2 Delivery O2 Flow Rate FiO2 09/12/16 15:02 98.1 67 18 99/62 96 09/11/16 17:00 Room Air Intake and Output 09/11/16 09/11/16 09/12/16 15:00 23:00 07:00 Intake Total 176 ml 500 ml Output Total 900 ml Balance 176 ml -400 ml Exam Constitutional: alert, oriented, well developed Psych: nl mood/affect, no complaints Head: atraumatic, normocephalic Eyes: EOMI, PERRL, nl lids ENMT: mucosa pink and moist, nl external ears & nose, nl lips & teeth, nl nasal mucosa & septum Neck: non-tender, supple Respiratory: clear to auscultation, normal air movement, No congested cough, No crackles/rales, No diminished breath sounds, No intercostal retraction, No labored breathing, No other, No respirations, No tactile fremitus, No wheezing Cardiovascular: nl pulses, regular rate and rhythm, No S3, No S4, No bruits, No diastolic murmur, No edema, No gallop, No irregular rhythm, No jugular venous distention (JVD), No murmurs/extra sounds, No other, No rub, No systolic murmur Gastrointestinal: other (epigastric tenderness), soft Musculoskeletal: nl extremities to inspection Extremities: normal pulses, No calf tenderness, No clubbing, No cyanosis, No edema, No other, No palpable cord, No pitting pedal edema, No tenderness Neurological: THERMAL ENGINEER II-XII intact, nl mental status, nl speech, nl strength Results Result Diagram: 09/12/16 0734 09/12/16 0734 Results 24 hrs Laboratory Tests Test 09/11/16 17:39 09/11/16 20:59 09/12/16 07:34 Lactic Acid Level 1.5 White Blood Count 4.4 #L 3.6 L Red Blood Count 2.41 L 2.56 L Hemoglobin 9.7 L 9.9 L Hematocrit 29.2 L 31.0 L Mean Corpuscular Volume 121.2 H 121.1 H Mean Corpuscular Hemoglobin 40.2 H 38.7 H Mean Corpuscular Hemoglobin Concent 33.2 31.9 L Red Cell Distribution Width 14.8 H 14.6 H Platelet Count 52 #L 58 L Mean Platelet Volume 11.2 H 11.3 H Neutrophils % 70.4 81.1 H Lymphocytes % 14.1 L 12.8 L Monocytes % 10.5 4.7 Eosinophils % 3.4 0.3 Basophils % 0.7 0.3 Nucleated Red Blood Cells % 0.0 0.0 Neutrophils # 3.1 2.9 Lymphocytes # 0.6 L 0.5 L Monocytes # 0.5 0.2 L Eosinophils # 0.2 0.0 Basophils # 0.0 0.0 Nucleated Red Blood Cells # 0.0 0.0 Sodium Level 147 H Potassium Level 3.2 L Chloride Level 109 # Carbon Dioxide Level 23 Anion Gap 18 H Blood Urea Nitrogen 10 Creatinine 0.97 Glucose Level 155 Calcium Level 8.8 Magnesium Level 2.2 Total Bilirubin 24.5 H Direct Bilirubin 21.60 *H Indirect Bilirubin 2.9 H Aspartate Amino Transf (AST/SGOT) 155 H Alanine Aminotransferase (ALT/SGPT) 65 Alkaline Phosphatase 458 H Total Protein 8.3 H Albumin 3.5 Globulin 4.80 H Albumin/Globulin Ratio 0.72 Medications Medications Current Medications Duloxetine HCl (Cymbalta) 60 mg DAILY PO Last administered on 09/12/16 08:36; Admin Dose 60 MG; Start 09/12/16 at 09:00 Folic Acid (Folic Acid) 1 mg DAILY PO Last administered on 09/12/16 08:34; Admin Dose 1 MG; Start 09/12/16 at 09:00 Propranolol HCl (Inderal) 40 mg BID PO Last administered on 09/12/16 08:37; Admin Dose 40 MG; Start 09/11/16 at 21:00 Topiramate (Topamax) 100 mg BID PO Last administered on 09/12/16 08:35; Admin Dose 100 MG; Start 09/11/16 at 21:00 Miscellaneous Information 20 mg DAILY PO ; Start 09/12/16 at 09:00; Status UNV Ondansetron HCl (Zofran Tab) 4 mg Q6H PRN PO NAUSEA AND/OR VOMITING; Start at 15:00 Ondansetron HCl (Zofran Inj) 4 mg Q6H PRN IV NAUSEA AND/OR VOMITING Last administered on 09/12/16 10:48; Admin Dose 4 MG; Start 09/11/16 at 15:00 Acetaminophen/ Hydrocodone Bitart ([place] (5/325)) 1 tab Q6H PRN PO MODERATE PAIN LEVEL 4-6 Last administered on 09/11/16 22:37; Admin Dose 1 TAB; Start at 15:00 Morphine Sulfate (morphine) 2 mg Q4H PRN IV SEVERE PAIN LEVEL 7-10; Start 09/11 at 15:00 Docusate Sodium (Colace) 100 mg Q12H PRN PO CONSTIPATION; Start 09/11/16 at 15: 00 Magnesium Hydroxide (Milk Of Mag) 30 ml DAILY PRN PO CONSTIPATION; Start at 15:00 Mirtazapine (Remeron) 15 mg HS PRN PO INSOMNIA; Start 09/11/16 at 17:00 Prednisolone 40 mg 40 mg DAILY PO Last administered on 09/12/16 08:35; Admin Dose 40 MG; Start 09/11/16 at 19:00; Stop 10/09/16 at 18:59 Pantoprazole 80 mg/Sodium Chloride 100 ml @ 10 mls/hr Q10H IV Last administered on 09/12/16 05:31; Admin Dose 10 MLS/HR; Start 09/11/16 at 19:00 Octreotide Acetate 1 mg/ Sodium Chloride 100 ml @ 5 mls/hr Q20H IV Last administered on 09/12/16 05:31; Admin Dose 5 MLS/HR; Start 09/11/16 at 19:00 Ceftriaxone Sodium (Rocephin) 50 ml @ 100 mls/hr Q24H IVPB Last administered on 09/12/16 08:31; Admin Dose 100 MLS/HR; Start 09/12/16 at 08:00; Stop at 00:01 Miscellaneous Information (*Order Clarification Bulletin) MEDICATION REQUIRES CLARIFICATI... Q8H XX ; Start 09/12/16 at 08:30 LAURA GARCIA MD Sep 12, 2016 15:53
--- NOTE | 2016-09-12 17:34 | OPPN ---
Date/Time of Note Date/Time of Note DATE: 09/12/16 TIME: 17:30 Operative Report Free Text/Dictation TECHNIQUE: After informed consent, with the patient/relatives understanding the procedure, its indications, potential risks and complications, including but not limited to: allergic reaction, bleeding, perforation or infection, and after all pertinent questions were answered to the patients satisfaction, the patient/relatives signed witnessed informed consent. Following this, premedication was administered slowly IV push under careful cardiovascular and respiratory monitoring with pulse oximetry, automatic blood pressure and registered dietitian. Once the sedative effect was achieved the patient was place in the left lateral decubitus, the panendoscope was introduced and advanced under visual control.Careful examination of the upper gastrointestinal tract, both on insertion as well as withdrawal of the instrument disclosed the following findings: Preoperative Diagnosis * GI bleeding Postoperative Diagnosis Impression: * Grade IV/IV esophageal varices * Post endoscopic variceal ligation 5 * Portal hypertensive gastropathy Plan: * Continue PPI and octreotide drips * Monitor H&H * Clear liquid diet . Operation/Procedure Performed * EGD with endoscopic variceal ligation Provider: MARGY DEL CID MD Anesthesia: MAC Estimated blood loss: 0 - 10 ml's Specimens * None Grafts/Implants * None Complications: None MARGY DEL CID MD Sep 12, 2016 17:34
[2016-09-12] MEDS: morphine 2 MG INJ IV PRN (18:00)
[2016-09-12] MEDS ORDERED: PROPOFOL 40 ML ONE (18:03)
[2016-09-12 21:12] LABS: ABNORMAL IP MESSAGE 1; BASOPHILS % 0.2 % (0.0-2.0); HEMATOCRIT 29.4 % (37.0-47.0); HEMOGLOBIN 9.7 g/dl (12.0-16.0); LYMPHOCYTES # 0.5 10^3/ul (0.8-2.9); LYMPHOCYTES % 9.5 % (15.0-51.0); MEAN CORPUSCULAR HEMOGLOBIN 40.4 pg (29.0-33.0); MEAN CORPUSCULAR VOLUME 122.5 fl (82.0-101.0); MEAN PLATELET VOLUME 11.2 fl (7.4-10.4); MONOCYTE # 0.3 10^3/ul (0.3-0.9); MONOCYTES % 4.8 % (0.0-11.0); NEUTROPHIL # 4.6 10^3/ul (1.6-7.5); NEUTROPHILS % 84.4 % (39.0-77.0); RED CELL DISTRIBUTION WIDTH 14.4 % (11.5-14.5); WHITE BLOOD COUNT 5.4 10^3/ul (4.8-10.8)
[2016-09-12 21:13] LABS: POSITIVE DIFF @See below
[2016-09-12 21:14] LABS: PLATELET COUNT 82 10^3/UL (140-415)
--- NOTE | 2016-09-12 23:33 | RADRPT ---
PROCEDURE: MRCP. CLINICAL INDICATION: Upper GI bleed, cirrhosis, obstructive jaundice. TECHNIQUE: An MRCP was performed without intravenous contrast. Multiplanar multisequence performed . were performed. 3-D MIP reformats of the biliary tree were performed. The examination was perform ed on a 3.0 Loly MRI scanner. COMPARISON: Abdominal ultrasound dated 09/11/2016, abdominal MRI dated 05/25/2015. FINDINGS: There are stones in the gallbladder. No gallbladder wall thickening or pericholecystic inflammation is identified. No intrahepatic or extrahepatic biliary ductal dilatation is seen. The pancreatic d uct is not dilated. There is no evidence of choledocholithiasis. The liver contour is nodular, consistent with cirrhosis. The caudate lobe of the liver is hypertrop hied. The spleen is enlarged (15.9 cm). The the kidneys and adrenal glands are unremarkable. There is trace abdominal ascites. No lymphadenopathy is identified. IMPRESSION: 1. Cholelithiasis without evidence of cholecystitis. 2. No biliary dilatation or evidence of choledocholithiasis. 3. No pancreatic ductal dilatation. 4. Cirrhosis with hypertrophy of the caudate lobe of the liver. 5. Splenomegaly. 6. Trace abdominal ascites. RPTAT: HTAR .Adalid Urrutia MD, Date Time Electronically viewed and signed by .Adalid Urrutia MD, on 09/12/2016 23:33 .R/
[2016-09-13] VITALS (13 sets, daily range): BP systolic 96–124; BP diastolic 55–76; PULSE 66–74; RESP 17–20
[2016-09-13] MEDS: [UNRECOGNIZED DRUG - REMARK] XX SCH ×3 (00:30→16:30)
[2016-09-13] MEDS: OCTREOTIDE 1 MG in SOD CHLORIDE 0.9% 95 ML IV SCH ×2 (00:37→23:01)
[2016-09-13] MEDS: PANTOPRAZOLE IV 80 MG in SOD CHLORIDE 0.9% 100 ML IV SCH ×4 (01:00→21:00)
[2016-09-13] MEDS: LEVOTHYROXINE 88 MCG TAB PO SCH (05:54)
[2016-09-13 07:57] LABS: BASOPHILS % 0.3 % (0.0-2.0); EOSINOPHILS % 0.5 % (0.0-7.0); HEMATOCRIT 30.7 % (37.0-47.0); HEMOGLOBIN 9.9 g/dl (12.0-16.0); LYMPHOCYTES # 1.1 10^3/ul (0.8-2.9); LYMPHOCYTES % 18.5 % (15.0-51.0); MEAN CORPUSCULAR HEMOGLOBIN 39.1 pg (29.0-33.0); MEAN CORPUSCULAR HGB CONC 32.2 g/dl (32.0-37.0); MEAN CORPUSCULAR VOLUME 121.3 fl (82.0-101.0); MEAN PLATELET VOLUME 11.2 fl (7.4-10.4); MONOCYTE # 0.4 10^3/ul (0.3-0.9); MONOCYTES % 7.5 % (0.0-11.0); NEUTROPHIL # 4.2 10^3/ul (1.6-7.5); NEUTROPHILS % 72.3 % (39.0-77.0); RED BLOOD COUNT 2.53 10^6/ul (4.20-5.40); RED CELL DISTRIBUTION WIDTH 14.5 % (11.5-14.5); WHITE BLOOD COUNT 5.7 10^3/ul (4.8-10.8)
[2016-09-13 07:58] LABS: PLATELET COUNT 103 10^3/UL (140-415); POSITIVE DIFF @See below
[2016-09-13 08:24] LABS: ALBUMIN 3.4 g/dl (3.3-4.9); ALBUMIN/GLOBULIN RATIO 0.69; BILIRUBIN,INDIRECT 2.8 mg/dl (0-1.1); BILIRUBIN,TOTAL 22.7 mg/dl (0.2-1.3); CALCIUM 9.2 mg/dl (8.4-10.2); CREATININE 1.04 mg/dl (0.44-1.00); POTASSIUM 3.4 mmol/L (3.5-5.1); TOTAL PROTEIN 8.3 g/dl (6.1-8.1)
[2016-09-13 08:40] LABS: BILIRUBIN,DIRECT 19.9 mg/dl (0.00-0.20)
[2016-09-13] MEDS: CEFTRIAXONE 1 GM/50 ML (PMX) 50 ML IVPB SCH (08:41)
[2016-09-13] MEDS: FOLIC ACID 1 MG TAB PO SCH (08:47)
[2016-09-13] MEDS: DULOXETINE 30 MG CAP DR PO SCH (08:47)
[2016-09-13] MEDS: TOPIRAMATE 100 MG TAB PO SCH ×2 (08:48→21:23)
[2016-09-13] MEDS: predniSOLONE 5 MG TAB PO SCH ×2 (09:00→13:56)
[2016-09-13] MEDS: PROPRANOLOL 40 MG TAB PO SCH ×2 (10:57→21:31)
[2016-09-13] MEDS: HYDROCODONE/APAP (5/325) TAB PO PRN (15:06)
--- NOTE | 2016-09-13 16:53 | PN ---
Date/Time of Note Date/Time of Note DATE: 09/13/16 TIME: 16:48 Assessment/Plan VTE Prophylaxis VTE Prophylaxis Intervention: contraindicated VTE Contraindication Reason: bleeding Lines/Catheters IV Catheter Type (from [facility]): Peripheral IV Urinary Cath still in place: No Assessment/Plan Assessment/Plan Assessment * Hypokalemia * Hematemesis EGD Grade IV/IV esophageal varices * Post endoscopic variceal ligation 5 Portal hypertensive gastropathy * Jaundice Alcoholic liver Cirrhosis * Chronic alcoholism alcoholism Plan * Octreotide drip * Protonix drip * Monitor hemoglobin and hematocrit and transfuse per protocol * trend liver enzymes * further orders will depend on clinical course * case discussed with Dr Montgomery Subjective 24 Hr Interval Summary Free Text/Dictation * Course reviewed with RN * Patient seen and examined * EGD Grade IV/IV esophageal varices * Post endoscopic variceal ligation 5 Portal hypertensive gastropathy * No untoward events overnight Exam/Review of Systems Vital Signs Vitals Vital Signs Date Time Temp Pulse Resp B/P Pulse Ox O2 Delivery O2 Flow Rate FiO2 09/13/16 15:29 98.4 64 19 114/71 96 09/12/16 17:23 Room Air Intake and Output 09/12/16 09/12/16 09/13/16 15:00 23:00 07:00 Intake Total 500 ml Output Total 800 ml Balance -300 ml Exam Constitutional: frail Eyes: icteric Neck: non-tender, supple Respiratory: clear to auscultation, normal air movement Cardiovascular: nl pulses, regular rate and rhythm Gastrointestinal: distended, nl liver, spleen, non-tender, soft Musculoskeletal: nl extremities to inspection, nl gait and stance Extremities: normal pulses Neurological: nl mental status, nl speech, nl strength Skin: nl turgor, other (jaundice), No rash or lesions Lymph: nl lymph nodes Results Result Diagram: 09/13/16 0735 09/13/16 0735 Results 24 hrs Laboratory Tests Test 09/12/16 20:54 09/13/16 07:35 White Blood Count 5.4 # 5.7 Red Blood Count 2.40 L 2.53 L Hemoglobin 9.7 L 9.9 L Hematocrit 29.4 L 30.7 L Mean Corpuscular Volume 122.5 H 121.3 H Mean Corpuscular Hemoglobin 40.4 H 39.1 H Mean Corpuscular Hemoglobin Concent 33.0 32.2 Red Cell Distribution Width 14.4 14.5 Platelet Count 82 #L 103 #L Mean Platelet Volume 11.2 H 11.2 H Neutrophils % 84.4 H 72.3 Lymphocytes % 9.5 L 18.5 Monocytes % 4.8 7.5 Eosinophils % 0.0 0.5 Basophils % 0.2 0.3 Nucleated Red Blood Cells % 0.0 0.0 Neutrophils # 4.6 4.2 Lymphocytes # 0.5 L 1.1 Monocytes # 0.3 0.4 Eosinophils # 0.0 0.0 Basophils # 0.0 0.0 Nucleated Red Blood Cells # 0.0 0.0 Sodium Level 148 H Potassium Level 3.4 L Chloride Level 107 Carbon Dioxide Level 23 Anion Gap 21 H Blood Urea Nitrogen 14 Creatinine 1.04 H Glucose Level 107 # Calcium Level 9.2 Total Bilirubin 22.7 H Direct Bilirubin 19.90 *H Indirect Bilirubin 2.8 H Aspartate Amino Transf (AST/SGOT) 112 H Alanine Aminotransferase (ALT/SGPT) 62 Alkaline Phosphatase 397 H Total Protein 8.3 H Albumin 3.4 Globulin 4.90 H Albumin/Globulin Ratio 0.69 Medications Medications Current Medications Duloxetine HCl (Cymbalta) 60 mg DAILY PO Last administered on 09/13/16 08:47; Admin Dose 60 MG; Start 09/12/16 at 09:00 Folic Acid (Folic Acid) 1 mg DAILY PO Last administered on 09/13/16 08:47; Admin Dose 1 MG; Start 09/12/16 at 09:00 Propranolol HCl (Inderal) 40 mg BID PO Last administered on 09/13/16 10:57; Admin Dose 40 MG; Start 09/11/16 at 21:00 Topiramate (Topamax) 100 mg BID PO Last administered on 09/13/16 08:48; Admin Dose 100 MG; Start 09/11/16 at 21:00 Miscellaneous Information 20 mg DAILY PO ; Start 09/12/16 at 09:00; Status UNV Ondansetron HCl (Zofran Tab) 4 mg Q6H PRN PO NAUSEA AND/OR VOMITING; Start at 15:00 Ondansetron HCl (Zofran Inj) 4 mg Q6H PRN IV NAUSEA AND/OR VOMITING Last administered on 09/12/16 18:00; Admin Dose 4 MG; Start 09/11/16 at 15:00 Acetaminophen/ Hydrocodone Bitart ([place] (5/325)) 1 tab Q6H PRN PO MODERATE PAIN LEVEL 4-6 Last administered on 09/13/16 15:06; Admin Dose 1 TAB; Start at 15:00 Morphine Sulfate (morphine) 2 mg Q4H PRN IV SEVERE PAIN LEVEL 7-10 Last administered on 09/12/16 18:00; Admin Dose 2 MG; Start 09/11/16 at 15:00 Docusate Sodium (Colace) 100 mg Q12H PRN PO CONSTIPATION; Start 09/11/16 at 15: 00 Magnesium Hydroxide (Milk Of Mag) 30 ml DAILY PRN PO CONSTIPATION; Start at 15:00 Mirtazapine (Remeron) 15 mg HS PRN PO INSOMNIA Last administered on 09/13/16 03:14; Admin Dose 15 MG; Start 09/11/16 at 17:00 Prednisolone 40 mg 40 mg DAILY PO Last administered on 09/13/16 13:56; Admin Dose 40 MG; Start 09/11/16 at 19:00; Stop 10/09/16 at 18:59 Pantoprazole 80 mg/Sodium Chloride 100 ml @ 10 mls/hr Q10H IV Last administered on 09/13/16 15:08; Admin Dose 10 MLS/HR; Start 09/11/16 at 19:00 Octreotide Acetate 1 mg/ Sodium Chloride 100 ml @ 5 mls/hr Q20H IV Last administered on 09/13/16 00:37; Admin Dose 5 MLS/HR; Start 09/11/16 at 19:00 Ceftriaxone Sodium (Rocephin) 50 ml @ 100 mls/hr Q24H IVPB Last administered on 09/13/16 08:41; Admin Dose 100 MLS/HR; Start 09/12/16 at 08:00; Stop at 00:01 Miscellaneous Information (*Order Clarification Bulletin) MEDICATION REQUIRES CLARIFICATI... Q8H XX ; Start 09/12/16 at 08:30 KRISTAN CHRISTINE NP Sep 13, 2016 16:53
--- NOTE | 2016-09-13 17:58 | PN ---
Date/Time of Note Date/Time of Note DATE: 09/13/16 TIME: 17:57 Assessment/Plan VTE Prophylaxis VTE Prophylaxis Intervention: SCD's Lines/Catheters IV Catheter Type (from Nrs): Peripheral IV Urinary Cath still in place: No Assessment/Plan Assessment/Plan 46 yo F with pmhx alcoholic cirrhosis cb EVs warranting banding presents with c/ o dark stools, hematemesis and jaundice. sp EGD 706 with multiple EV ligations #hematemesis/dark stools: sp EV banding 7. -GI following -cont rocephin (1g/day x 7 days total), PPI drip, somatostatin drip as per GI rec -defer transfusion as long as hgb>7 #jaundice: suspect 2/2 hyperbilirubinemia likely 2/2 alcoholic cirrhosis -started high dose prednisolone (40 mg daily, x 28 days) as Maddreys Discriminant Function score 40.6 consider checking Lille score/rechecking DF in 1 week to monitor for improvement from steroids -MRCP without obstruction #hypokalemia: RESOLVED resume lasix #cirrhosis -cont home beta angela of note, bb may increase risk to pt of kidney disease given her advanced alcoholic cirrhosis however given pt is here for possible EVs suspect benefit of this medication outweighs risk at this time. defer to GI -RD eval #R foot/ankle pain sp fall -no fractures. consider PT eval and consider CT of R foot #alcoholism: last drink 1 week ago -cessation advised -cont home folic acid #h/o anxiety -cont home Remeron, cymbalta, latuda #h/o hypothyroid: cont home synthroid DVT prophx: SCDs only given concern for variceal bleed Subjective 24 Hr Interval Summary Free Text/Dictation pt reports abd pain slightly better after banding Exam/Review of Systems Vital Signs Vitals Vital Signs Date Time Temp Pulse Resp B/P Pulse Ox O2 Delivery O2 Flow Rate FiO2 09/13/16 16:22 71 09/13/16 15:29 98.4 19 114/71 96 09/12/16 17:23 Room Air Intake and Output 09/12/16 09/12/16 09/13/16 15:00 23:00 07:00 Intake Total 500 ml Output Total 800 ml Balance -300 ml Exam jaundiced with scleral icterus no mrg lungs clear abd soft +caput medusae LFTs noted Results Result Diagram: 09/13/16 0735 09/13/16 0735 Results 24 hrs Laboratory Tests Test 09/12/16 20:54 09/13/16 07:35 White Blood Count 5.4 # 5.7 Red Blood Count 2.40 L 2.53 L Hemoglobin 9.7 L 9.9 L Hematocrit 29.4 L 30.7 L Mean Corpuscular Volume 122.5 H 121.3 H Mean Corpuscular Hemoglobin 40.4 H 39.1 H Mean Corpuscular Hemoglobin Concent 33.0 32.2 Red Cell Distribution Width 14.4 14.5 Platelet Count 82 #L 103 #L Mean Platelet Volume 11.2 H 11.2 H Neutrophils % 84.4 H 72.3 Lymphocytes % 9.5 L 18.5 Monocytes % 4.8 7.5 Eosinophils % 0.0 0.5 Basophils % 0.2 0.3 Nucleated Red Blood Cells % 0.0 0.0 Neutrophils # 4.6 4.2 Lymphocytes # 0.5 L 1.1 Monocytes # 0.3 0.4 Eosinophils # 0.0 0.0 Basophils # 0.0 0.0 Nucleated Red Blood Cells # 0.0 0.0 Sodium Level 148 H Potassium Level 3.4 L Chloride Level 107 Carbon Dioxide Level 23 Anion Gap 21 H Blood Urea Nitrogen 14 Creatinine 1.04 H Glucose Level 107 # Calcium Level 9.2 Total Bilirubin 22.7 H Direct Bilirubin 19.90 *H Indirect Bilirubin 2.8 H Aspartate Amino Transf (AST/SGOT) 112 H Alanine Aminotransferase (ALT/SGPT) 62 Alkaline Phosphatase 397 H Total Protein 8.3 H Albumin 3.4 Globulin 4.90 H Albumin/Globulin Ratio 0.69 Medications Medications Current Medications Duloxetine HCl (Cymbalta) 60 mg DAILY PO Last administered on 09/13/16 08:47; Admin Dose 60 MG; Start 09/12/16 at 09:00 Folic Acid (Folic Acid) 1 mg DAILY PO Last administered on 09/13/16 08:47; Admin Dose 1 MG; Start 09/12/16 at 09:00 Propranolol HCl (Inderal) 40 mg BID PO Last administered on 09/13/16 10:57; Admin Dose 40 MG; Start 09/11/16 at 21:00 Topiramate (Topamax) 100 mg BID PO Last administered on 09/13/16 08:48; Admin Dose 100 MG; Start 09/11/16 at 21:00 Miscellaneous Information 20 mg DAILY PO ; Start 09/12/16 at 09:00; Status UNV Ondansetron HCl (Zofran Tab) 4 mg Q6H PRN PO NAUSEA AND/OR VOMITING; Start at 15:00 Ondansetron HCl (Zofran Inj) 4 mg Q6H PRN IV NAUSEA AND/OR VOMITING Last administered on 09/12/16 18:00; Admin Dose 4 MG; Start 09/11/16 at 15:00 Acetaminophen/ Hydrocodone Bitart ([place] (5/325)) 1 tab Q6H PRN PO MODERATE PAIN LEVEL 4-6 Last administered on 09/13/16 15:06; Admin Dose 1 TAB; Start at 15:00 Morphine Sulfate (morphine) 2 mg Q4H PRN IV SEVERE PAIN LEVEL 7-10 Last administered on 09/12/16 18:00; Admin Dose 2 MG; Start 09/11/16 at 15:00 Docusate Sodium (Colace) 100 mg Q12H PRN PO CONSTIPATION; Start 09/11/16 at 15: 00 Magnesium Hydroxide (Milk Of Mag) 30 ml DAILY PRN PO CONSTIPATION; Start at 15:00 Mirtazapine (Remeron) 15 mg HS PRN PO INSOMNIA Last administered on 09/13/16 03:14; Admin Dose 15 MG; Start 09/11/16 at 17:00 Prednisolone 40 mg 40 mg DAILY PO Last administered on 09/13/16 13:56; Admin Dose 40 MG; Start 09/11/16 at 19:00; Stop 10/09/16 at 18:59 Pantoprazole 80 mg/Sodium Chloride 100 ml @ 10 mls/hr Q10H IV Last administered on 09/13/16 15:08; Admin Dose 10 MLS/HR; Start 09/11/16 at 19:00 Octreotide Acetate 1 mg/ Sodium Chloride 100 ml @ 5 mls/hr Q20H IV Last administered on 09/13/16 00:37; Admin Dose 5 MLS/HR; Start 09/11/16 at 19:00 Ceftriaxone Sodium (Rocephin) 50 ml @ 100 mls/hr Q24H IVPB Last administered on 09/13/16t 08:41; Admin Dose 100 MLS/HR; Start 09/12/16 at 08:00; Stop at 00:01 Miscellaneous Information (*Order Clarification Bulletin) MEDICATION REQUIRES CLARIFICATI... Q8H XX ; Start 09/12/16 at 08:30 DK CISSE MD Sep 13, 2016 17:58
[2016-09-13] MEDS ORDERED: POTASSIUM CHLORIDE (SR) 20 MEQ TAB PO STA (18:00)
[2016-09-14] VITALS (12 sets, daily range): BP systolic 97–117; BP diastolic 60–74; PULSE 50–65; RESP 15–18
[2016-09-14] MEDS: [UNRECOGNIZED DRUG - REMARK] XX SCH ×3 (00:30→13:35)
[2016-09-14] MEDS: PANTOPRAZOLE IV 80 MG in SOD CHLORIDE 0.9% 100 ML IV SCH ×2 (05:35→16:29)
[2016-09-14] MEDS: LEVOTHYROXINE 88 MCG TAB PO SCH (05:39)
[2016-09-14 06:50] LABS: BASOPHILS % 0.3 % (0.0-2.0); HEMATOCRIT 29.7 % (37.0-47.0); HEMOGLOBIN 9.6 g/dl (12.0-16.0); LYMPHOCYTES # 0.7 10^3/ul (0.8-2.9); LYMPHOCYTES % 18.8 % (15.0-51.0); MEAN CORPUSCULAR HEMOGLOBIN 39.3 pg (29.0-33.0); MEAN CORPUSCULAR HGB CONC 32.3 g/dl (32.0-37.0); MEAN CORPUSCULAR VOLUME 121.7 fl (82.0-101.0); MEAN PLATELET VOLUME 10.7 fl (7.4-10.4); MONOCYTE # 0.4 10^3/ul (0.3-0.9); MONOCYTES % 10.3 % (0.0-11.0); NEUTROPHIL # 2.7 10^3/ul (1.6-7.5); NEUTROPHILS % 69.8 % (39.0-77.0); PLATELET COUNT 104 10^3/UL (140-415); RED BLOOD COUNT 2.44 10^6/ul (4.20-5.40); RED CELL DISTRIBUTION WIDTH 13.9 % (11.5-14.5); WHITE BLOOD COUNT 3.9 10^3/ul (4.8-10.8)
[2016-09-14 08:19] LABS: ALBUMIN 3.5 g/dl (3.3-4.9); ALBUMIN/GLOBULIN RATIO 0.77; BILIRUBIN,INDIRECT 2.9 mg/dl (0-1.1); BILIRUBIN,TOTAL 22.3 mg/dl (0.2-1.3); CALCIUM 8.8 mg/dl (8.4-10.2); CREATININE 1.03 mg/dl (0.44-1.00); POTASSIUM 3.9 mmol/L (3.5-5.1)
[2016-09-14 08:27] LABS: BILIRUBIN,DIRECT 19.4 mg/dl (0.00-0.20)
[2016-09-14] MEDS: DULOXETINE 30 MG CAP DR PO SCH (09:51)
[2016-09-14] MEDS: CEFTRIAXONE 1 GM/50 ML (PMX) 50 ML IVPB SCH (09:51)
[2016-09-14] MEDS: FOLIC ACID 1 MG TAB PO SCH (09:51)
[2016-09-14] MEDS: TOPIRAMATE 100 MG TAB PO SCH ×2 (09:51→20:06)
[2016-09-14] MEDS: predniSOLONE 5 MG TAB PO SCH (09:51)
[2016-09-14] MEDS: FUROSEMIDE 20 MG TAB PO SCH (09:52)
[2016-09-14] MEDS: PROPRANOLOL 40 MG TAB PO SCH ×2 (09:52→21:00)
[2016-09-14] MEDS: HYDROCODONE/APAP (5/325) TAB PO PRN (12:31)
--- NOTE | 2016-09-14 13:06 | PN ---
Date/Time of Note Date/Time of Note DATE: 09/14/16 TIME: 13:06 Assessment/Plan VTE Prophylaxis VTE Prophylaxis Intervention: SCD's Lines/Catheters IV Catheter Type (from Nrs): Peripheral IV Urinary Cath still in place: No Assessment/Plan Assessment/Plan 46 yo F with pmhx alcoholic cirrhosis cb EVs warranting banding presents with c/ o dark stools, hematemesis and jaundice. sp EGD 7. with multiple EV ligations #hematemesis/dark stools: sp EV banding 7. -GI following -cont rocephin (1g/day x 7 days total), PPI drip, somatostatin drip as per GI rec -defer transfusion as long as hgb>7 #jaundice: suspect 2/2 hyperbilirubinemia likely 2/2 alcoholic cirrhosis -started high dose prednisolone (40 mg daily, x 28 days-->started 09.12) as Maddreys Discriminant Function score 40.6 consider checking Lille score/rechecking DF after 1 week to monitor for improvement from steroids -MRCP without obstruction #hypokalemia: RESOLVED resume lasix #cirrhosis -cont home beta angela of note, bb may increase risk to pt of kidney disease given her advanced alcoholic cirrhosis however given pt is here for possible EVs suspect benefit of this medication outweighs risk at this time. defer to GI -RD eval #R foot/ankle pain sp fall -no fractures on XR, obtain CT -will start PT after CT results #alcoholism: last drink 1 week prior to admission -cessation advised -cont home folic acid #h/o anxiety -cont home Remeron, cymbalta, (not on latuda) #h/o hypothyroid: cont home synthroid DVT prophx: SCDs only given concern for variceal bleed Subjective 24 Hr Interval Summary Free Text/Dictation Reporting some pain at the bottom of her esophagus Exam/Review of Systems Vital Signs Vitals Vital Signs Date Time Temp Pulse Resp B/P Pulse Ox O2 Delivery O2 Flow Rate FiO2 09/14/16 12:34 58 09/14/16 11:11 97.8 18 99/61 98 09/12/16 17:23 Room Air Intake and Output 09/13/16 09/13/16 09/14/16 15:00 23:00 07:00 Intake Total 50 ml 730 ml 115 ml Balance 50 ml 730 ml 115 ml Exam still jaundiced no mrg lungs clear abd soft no le edema Results Result Diagram: 09/14/16 0624 09/14/16 0624 Results 24 hrs Laboratory Tests Test 09/14/16 06:24 White Blood Count 3.9 #L Red Blood Count 2.44 L Hemoglobin 9.6 L Hematocrit 29.7 L Mean Corpuscular Volume 121.7 H Mean Corpuscular Hemoglobin 39.3 H Mean Corpuscular Hemoglobin Concent 32.3 Red Cell Distribution Width 13.9 Platelet Count 104 L Mean Platelet Volume 10.7 H Neutrophils % 69.8 Lymphocytes % 18.8 Monocytes % 10.3 Eosinophils % 0.0 Basophils % 0.3 Nucleated Red Blood Cells % 0.0 Neutrophils # 2.7 Lymphocytes # 0.7 L Monocytes # 0.4 Eosinophils # 0.0 Basophils # 0.0 Nucleated Red Blood Cells # 0.0 Sodium Level 146 H Potassium Level 3.9 Chloride Level 111 H Carbon Dioxide Level 19 L Anion Gap 20 H Blood Urea Nitrogen 14 Creatinine 1.03 H Glucose Level 115 Calcium Level 8.8 Total Bilirubin 22.3 H Direct Bilirubin 19.40 *H Indirect Bilirubin 2.9 H Aspartate Amino Transf (AST/SGOT) 134 H Alanine Aminotransferase (ALT/SGPT) 69 Alkaline Phosphatase 365 H Total Protein 8.0 Albumin 3.5 Globulin 4.50 H Albumin/Globulin Ratio 0.77 Medications Medications Current Medications Duloxetine HCl (Cymbalta) 60 mg DAILY PO Last administered on 09/14/16 09:51; Admin Dose 60 MG; Start 09/12/16 at 09:00 Folic Acid (Folic Acid) 1 mg DAILY PO Last administered on 09/14/16 09:51; Admin Dose 1 MG; Start 09/12/16 at 09:00 Propranolol HCl (Inderal) 40 mg BID PO Last administered on 09/14/16 09:52; Admin Dose 40 MG; Start 09/11/16 at 21:00 Topiramate (Topamax) 100 mg BID PO Last administered on 09/14/16 09:51; Admin Dose 100 MG; Start 09/11/16 at 21:00 Ondansetron HCl (Zofran Tab) 4 mg Q6H PRN PO NAUSEA AND/OR VOMITING; Start at 15:00 Ondansetron HCl (Zofran Inj) 4 mg Q6H PRN IV NAUSEA AND/OR VOMITING Last administered on 09/12/16 18:00; Admin Dose 4 MG; Start 09/11/16 at 15:00 Acetaminophen/ Hydrocodone Bitart ([place] (5/325)) 1 tab Q6H PRN PO MODERATE PAIN LEVEL 4-6 Last administered on 09/14/16 12:31; Admin Dose 1 TAB; Start at 15:00 Morphine Sulfate (morphine) 2 mg Q4H PRN IV SEVERE PAIN LEVEL 7-10 Last administered on 09/12/16 18:00; Admin Dose 2 MG; Start 09/11/16 at 15:00 Docusate Sodium (Colace) 100 mg Q12H PRN PO CONSTIPATION; Start 09/11/16 at 15: 00 Magnesium Hydroxide (Milk Of Mag) 30 ml DAILY PRN PO CONSTIPATION Last administered on 09/14/16 12:31; Admin Dose 30 ML; Start 09/11/16 at 15:00 Mirtazapine (Remeron) 15 mg HS PRN PO INSOMNIA Last administered on 09/13/16 03:14; Admin Dose 15 MG; Start 09/11/16 at 17:00 Prednisolone 40 mg 40 mg DAILY PO Last administered on 09/14/16 09:51; Admin Dose 40 MG; Start 09/11/16 at 19:00; Stop 10/09/16 at 18:59 Pantoprazole 80 mg/Sodium Chloride 100 ml @ 10 mls/hr Q10H IV Last administered on 09/14/16 05:35; Admin Dose 10 MLS/HR; Start 09/11/16 at 19:00 Octreotide Acetate 1 mg/ Sodium Chloride 100 ml @ 5 mls/hr Q20H IV Last administered on 09/13/16 23:01; Admin Dose 5 MLS/HR; Start 09/11/16 at 19:00 Ceftriaxone Sodium (Rocephin) 50 ml @ 100 mls/hr Q24H IVPB Last administered on 09/14/16 09:51; Admin Dose 100 MLS/HR; Start 09/12/16 at 08:00; Stop at 00:01 Miscellaneous Information (*Order Clarification Bulletin) MEDICATION REQUIRES CLARIFICATI... Q8H XX ; Start 09/12/16 at 08:30 Furosemide (Lasix) 20 mg DAILY PO Last administered on 09/14/16t 09:52; Admin Dose 20 MG; Start 09/14/16 at 09:00 DK CISSE MD Sep 14, 2016 13:06
[2016-09-14] MEDS: ONDANSETRON 4 MG INJ IV PRN (16:28)
[2016-09-14] MEDS: morphine 2 MG INJ IV PRN (16:28)
--- NOTE | 2016-09-14 16:34 | PN ---
Date/Time of Note Date/Time of Note DATE: 09/14/16 TIME: 16:31 Assessment/Plan VTE Prophylaxis VTE Prophylaxis Intervention: contraindicated VTE Contraindication Reason: bleeding Lines/Catheters IV Catheter Type (from Nrs): Peripheral IV Urinary Cath still in place: No Assessment/Plan Assessment/Plan Assessment * Hypokalemia corrected * Hematemesis EGD Grade IV/IV esophageal varices * Post endoscopic variceal ligation 5 Portal hypertensive gastropathy * Jaundice Alcoholic liver Cirrhosis * Chronic alcoholism alcoholism Plan * discontinue Octreotide drip * Protonix drip d/c shift to iv protonix bid * Monitor hemoglobin and hematocrit and transfuse per protocol * trend liver enzymes * further orders will depend on clinical course * case discussed with Dr Montgomery Subjective 24 Hr Interval Summary Free Text/Dictation * course reviewed with RN * Patient seen and examined * Total bilirubin unchanged * No untoward events overnight Exam/Review of Systems Vital Signs Vitals Vital Signs Date Time Temp Pulse Resp B/P Pulse Ox O2 Delivery O2 Flow Rate FiO2 09/14/16 15:03 98.8 66 18 103/69 100 09/12/16 17:23 Room Air Intake and Output 09/13/16 09/13/16 09/14/16 15:00 23:00 07:00 Intake Total 50 ml 730 ml 115 ml Balance 50 ml 730 ml 115 ml Exam Constitutional: alert, frail Eyes: icteric Neck: non-tender, supple Respiratory: clear to auscultation, normal air movement Cardiovascular: nl pulses, regular rate and rhythm Gastrointestinal: bowel sounds, distended, non-tender, soft, No rebound or guarding Musculoskeletal: nl extremities to inspection, nl gait and stance Extremities: normal pulses Neurological: nl mental status, nl speech, nl strength Skin: nl turgor, rash or lesions Results Result Diagram: 09/14/16 0624 09/14/16 0624 Results 24 hrs Laboratory Tests Test 09/14/16 06:24 White Blood Count 3.9 #L Red Blood Count 2.44 L Hemoglobin 9.6 L Hematocrit 29.7 L Mean Corpuscular Volume 121.7 H Mean Corpuscular Hemoglobin 39.3 H Mean Corpuscular Hemoglobin Concent 32.3 Red Cell Distribution Width 13.9 Platelet Count 104 L Mean Platelet Volume 10.7 H Neutrophils % 69.8 Lymphocytes % 18.8 Monocytes % 10.3 Eosinophils % 0.0 Basophils % 0.3 Nucleated Red Blood Cells % 0.0 Neutrophils # 2.7 Lymphocytes # 0.7 L Monocytes # 0.4 Eosinophils # 0.0 Basophils # 0.0 Nucleated Red Blood Cells # 0.0 Sodium Level 146 H Potassium Level 3.9 Chloride Level 111 H Carbon Dioxide Level 19 L Anion Gap 20 H Blood Urea Nitrogen 14 Creatinine 1.03 H Glucose Level 115 Calcium Level 8.8 Total Bilirubin 22.3 H Direct Bilirubin 19.40 *H Indirect Bilirubin 2.9 H Aspartate Amino Transf (AST/SGOT) 134 H Alanine Aminotransferase (ALT/SGPT) 69 Alkaline Phosphatase 365 H Total Protein 8.0 Albumin 3.5 Globulin 4.50 H Albumin/Globulin Ratio 0.77 Medications Medications Current Medications Duloxetine HCl (Cymbalta) 60 mg DAILY PO Last administered on 09/14/16 09:51; Admin Dose 60 MG; Start 09/12/16 at 09:00 Folic Acid (Folic Acid) 1 mg DAILY PO Last administered on 09/14/16 09:51; Admin Dose 1 MG; Start 09/12/16 at 09:00 Propranolol HCl (Inderal) 40 mg BID PO Last administered on 09/14/16 09:52; Admin Dose 40 MG; Start 09/11/16 at 21:00 Topiramate (Topamax) 100 mg BID PO Last administered on 09/14/16 09:51; Admin Dose 100 MG; Start 09/11/16 at 21:00 Ondansetron HCl (Zofran Tab) 4 mg Q6H PRN PO NAUSEA AND/OR VOMITING; Start at 15:00 Ondansetron HCl (Zofran Inj) 4 mg Q6H PRN IV NAUSEA AND/OR VOMITING Last administered on 09/14/16 16:28; Admin Dose 4 MG; Start 09/11/16 at 15:00 Acetaminophen/ Hydrocodone Bitart ([place] (5/325)) 1 tab Q6H PRN PO MODERATE PAIN LEVEL 4-6 Last administered on 09/14/16 12:31; Admin Dose 1 TAB; Start at 15:00 Morphine Sulfate (morphine) 2 mg Q4H PRN IV SEVERE PAIN LEVEL 7-10 Last administered on 09/14/16 16:28; Admin Dose 2 MG; Start 09/11/16 at 15:00 Docusate Sodium (Colace) 100 mg Q12H PRN PO CONSTIPATION; Start 09/11/16 at 15: 00 Magnesium Hydroxide (Milk Of Mag) 30 ml DAILY PRN PO CONSTIPATION Last administered on 09/14/16 12:31; Admin Dose 30 ML; Start 09/11/16 at 15:00 Mirtazapine (Remeron) 15 mg HS PRN PO INSOMNIA Last administered on 09/13/16 03:14; Admin Dose 15 MG; Start 09/11/16 at 17:00 Prednisolone 40 mg 40 mg DAILY PO Last administered on 09/14/16 09:51; Admin Dose 40 MG; Start 09/11/16 at 19:00; Stop 10/09/16 at 18:59 Pantoprazole 80 mg/Sodium Chloride 100 ml @ 10 mls/hr Q10H IV Last administered on 09/14/16 16:29; Admin Dose 10 MLS/HR; Start 09/11/16 at 19:00 Octreotide Acetate 1 mg/ Sodium Chloride 100 ml @ 5 mls/hr Q20H IV Last administered on 09/13/16 23:01; Admin Dose 5 MLS/HR; Start 09/11/16 at 19:00 Ceftriaxone Sodium (Rocephin) 50 ml @ 100 mls/hr Q24H IVPB Last administered on 09/14/16 09:51; Admin Dose 100 MLS/HR; Start 09/12/16 at 08:00; Stop at 00:01 Miscellaneous Information (*Order Clarification Bulletin) MEDICATION REQUIRES CLARIFICATI... Q8H XX ; Start 09/12/16 at 08:30 Furosemide (Lasix) 20 mg DAILY PO Last administered on 09/14/16 09:52; Admin Dose 20 MG; Start 09/14/16 at 09:00 KRISTAN CHRISTINE NP Sep 14, 2016 16:34
[2016-09-14] MEDS: PANTOPRAZOLE 40 MG INJ IV SCH (18:41)
--- NOTE | 2016-09-14 19:58 | RADRPT ---
PROCEDURE: CT RIGHT ANKLE AND FOOT CLINICAL INDICATION: Status post fall. Foot pain. Rule out fracture. TECHNIQUE: CT scan of the right ankle was performed on a multi -slice scanner. No IV contrast was administered. Coronal and sagittal reformatted images were obtained from the axial source images. The total exam DLP equals 753.03 mGy-cm. The CDTI volume was 18.45 mGy. One or more of the following dose reduction techniques were used: - Automated exposure control. - Adjustment of the mA and/or kV according to patient size . - Use of iterative reconstruction technique. Images were reviewed on a high-resolution PACS workstation. COMPARISON: X-ray dated 09/11/2016 FINDINGS: There is a comminuted intra-articular fracture of the cuboid with small displaced fracture fragment identified best on axial images 93 through 112 of series 601. There is also a comminuted intra-elicia cular fracture of the medial cuneiform at the medial cuneiform first metatarsal joint seen best on i mage 78 series 601. There is a small avulsion fracture of the medial base of the first metatarsal. No diastasis between the medial cuneiform and second metatarsal. There is a comminuted mildly disp laced intra-articular fracture of the plantar base of the middle cuneiform and there is a comminuted no intra-articular fracture of the lateral cuneiform extending to the lateral cuneiform third metat arsal joint with a minimal step-off of the lateral cuneiform cortical surface seen on axial image 78 with the fractures also seen involving the plantar surface on coronal image 102 of series 4.. No d istal fibular or tibial fracture identified. No evidence of tibiofibular diastasis. There is soft tissue swelling surrounding the anterior talofibular ligament and the ligament is possibly torn. There is an old osteochondral defect of the lateral talus dome seen as a small subcortical cyst on c oronal image number 121. IMPRESSION: 1. Comminuted intra-articular fractures of the cuneiforms and of the cuboid. 2. No evidence for tibial or fibular fracture. 3. 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 RPTAT: XX .Hiren Brennan MD, Date Time Electronically viewed and signed by .Hiren Brennan MD, on 09/14/2016 19:58 .T/
[2016-09-15] VITALS (11 sets, daily range): BP systolic 96–112; BP diastolic 58–69; PULSE 56–65; RESP 15–18
[2016-09-15] MEDS: [UNRECOGNIZED DRUG - REMARK] XX SCH ×3 (00:30→16:30)
[2016-09-15] MEDS: LEVOTHYROXINE 88 MCG TAB PO SCH (06:13)
[2016-09-15] MEDS: PANTOPRAZOLE 40 MG INJ IV SCH ×2 (06:13→18:06)
[2016-09-15 07:08] LABS: BASOPHILS % 0.2 % (0.0-2.0); EOSINOPHILS % 0.6 % (0.0-7.0); HEMATOCRIT 31.4 % (37.0-47.0); HEMOGLOBIN 10.2 g/dl (12.0-16.0); LYMPHOCYTES # 1.1 10^3/ul (0.8-2.9); LYMPHOCYTES % 23.3 % (15.0-51.0); MEAN CORPUSCULAR HEMOGLOBIN 38.9 pg (29.0-33.0); MEAN CORPUSCULAR HGB CONC 32.5 g/dl (32.0-37.0); MEAN CORPUSCULAR VOLUME 119.8 fl (82.0-101.0); MEAN PLATELET VOLUME 10.6 fl (7.4-10.4); MONOCYTE # 0.5 10^3/ul (0.3-0.9); MONOCYTES % 10.9 % (0.0-11.0); NEUTROPHILS % 63.5 % (39.0-77.0); PLATELET COUNT 131 10^3/UL (140-415); RED BLOOD COUNT 2.62 10^6/ul (4.20-5.40); RED CELL DISTRIBUTION WIDTH 13.6 % (11.5-14.5); WHITE BLOOD COUNT 4.8 10^3/ul (4.8-10.8)
[2016-09-15 07:33] LABS: ALBUMIN 3.5 g/dl (3.3-4.9); ALBUMIN/GLOBULIN RATIO 0.76; BILIRUBIN,INDIRECT 2.8 mg/dl (0-1.1); BILIRUBIN,TOTAL 21.4 mg/dl (0.2-1.3); CALCIUM 8.7 mg/dl (8.4-10.2); CREATININE 1.12 mg/dl (0.44-1.00); POTASSIUM 3.5 mmol/L (3.5-5.1); TOTAL PROTEIN 8.1 g/dl (6.1-8.1)
[2016-09-15 07:38] LABS: BILIRUBIN,DIRECT 18.6 mg/dl (0.00-0.20)
[2016-09-15] MEDS: CEFTRIAXONE 1 GM/50 ML (PMX) 50 ML IVPB SCH (08:23)
[2016-09-15] MEDS: ONDANSETRON 4 MG INJ IV PRN ×2 (08:33→21:27)
[2016-09-15] MEDS: morphine 2 MG INJ IV PRN ×3 (08:33→21:27)
[2016-09-15] MEDS: DULOXETINE 30 MG CAP DR PO SCH (08:39)
[2016-09-15] MEDS: FOLIC ACID 1 MG TAB PO SCH (08:39)
[2016-09-15] MEDS: predniSOLONE 5 MG TAB PO SCH (08:41)
[2016-09-15] MEDS: FUROSEMIDE 20 MG TAB PO SCH (08:41)
[2016-09-15] MEDS: TOPIRAMATE 100 MG TAB PO SCH ×2 (08:42→21:00)
[2016-09-15] MEDS: PROPRANOLOL 40 MG TAB PO SCH ×2 (08:43→21:00)
--- NOTE | 2016-09-15 12:29 | PN ---
Date/Time of Note Date/Time of Note DATE: 09/15/16 TIME: 12:17 Assessment/Plan VTE Prophylaxis VTE Prophylaxis Intervention: SCD's Lines/Catheters IV Catheter Type (from [facility]): Saline Lock Urinary Cath still in place: No Assessment/Plan Assessment/Plan Assessment * GI bleeding/Hematemesis EGD Grade IV/IV esophageal varices Post endoscopic variceal ligation 5 Portal hypertensive gastropathy * Jaundice Alcoholic hepatitis/Cirrhosis * Chronic alcoholism Plan * Continue present regimen * Advance diet as tolerated * Once tolerating diet may be followed as outpatient Subjective 24 Hr Interval Summary Free Text/Dictation Course reviewed with nursing staff Patient complains of some retrosternal discomfort, as expected post extensive endoscopic variceal ligation No evidence of further bleeding, on a liquid diet tolerating without difficulty No evidence of encephalopathy We will advance diet and if tolerated may consider outpatient follow-up Should complete 28 days of prednisolone for alcoholic hepatitis Her prognosis long-term will depend to a great extent on her ability to remain abstinent Exam/Review of Systems Vital Signs Vitals Vital Signs Date Time Temp Pulse Resp B/P Pulse Ox O2 Delivery O2 Flow Rate FiO2 09/15/16 08:24 63 09/15/16 07:34 97.0 18 100/61 98 09/12/16 17:23 Room Air Intake and Output 09/14/16 09/14/16 09/15/16 15:00 23:00 07:00 Intake Total 50 ml 720 ml 120 ml Balance 50 ml 720 ml 120 ml Exam Constitutional: alert, obese, oriented, other (Deeply jaundice), well developed Psych: nl mood/affect, no complaints Head: atraumatic, normocephalic Eyes: EOMI, PERRL, nl conjunctiva, nl lids, nl sclera ENMT: nl external ears & nose, nl lips & teeth, nl nasal mucosa & septum Neck: non-tender, supple Respiratory: clear to auscultation, normal air movement Cardiovascular: nl pulses, regular rate and rhythm Gastrointestinal: nl liver, spleen, non-tender, soft Musculoskeletal: nl extremities to inspection, nl gait and stance Extremities: normal pulses Neurological: WAGE ADJUSTER II-XII intact, nl mental status, nl speech, nl strength Skin: nl turgor, No rash or lesions Lymph: nl lymph nodes Results Result Diagram: 09/15/16 0603 09/15/16 0603 Results 24 hrs Laboratory Tests Test 09/15/16 06:03 White Blood Count 4.8 # Red Blood Count 2.62 L Hemoglobin 10.2 L Hematocrit 31.4 L Mean Corpuscular Volume 119.8 H Mean Corpuscular Hemoglobin 38.9 H Mean Corpuscular Hemoglobin Concent 32.5 Red Cell Distribution Width 13.6 Platelet Count 131 #L Mean Platelet Volume 10.6 H Neutrophils % 63.5 Lymphocytes % 23.3 Monocytes % 10.9 Eosinophils % 0.6 Basophils % 0.2 Nucleated Red Blood Cells % 0.0 Neutrophils # 3.0 Lymphocytes # 1.1 Monocytes # 0.5 Eosinophils # 0.0 Basophils # 0.0 Nucleated Red Blood Cells # 0.0 Sodium Level 146 H Potassium Level 3.5 Chloride Level 108 Carbon Dioxide Level 23 Anion Gap 19 H Blood Urea Nitrogen 16 Creatinine 1.12 H Glucose Level 97 Calcium Level 8.7 Total Bilirubin 21.4 H Direct Bilirubin 18.60 *H Indirect Bilirubin 2.8 H Aspartate Amino Transf (AST/SGOT) 138 H Alanine Aminotransferase (ALT/SGPT) 85 H Alkaline Phosphatase 358 H Total Protein 8.1 Albumin 3.5 Globulin 4.60 H Albumin/Globulin Ratio 0.76 Medications Medications Current Medications Duloxetine HCl (Cymbalta) 60 mg DAILY PO Last administered on 09/15/16 08:39; Admin Dose 60 MG; Start 09/12/16 at 09:00 Folic Acid (Folic Acid) 1 mg DAILY PO Last administered on 09/15/16 08:39; Admin Dose 1 MG; Start 09/12/16 at 09:00 Propranolol HCl (Inderal) 40 mg BID PO Last administered on 09/15/16 08:43; Admin Dose 40 MG; Start 09/11/16 at 21:00 Topiramate (Topamax) 100 mg BID PO Last administered on 09/15/16 08:42; Admin Dose 100 MG; Start 09/11/16 at 21:00 Ondansetron HCl (Zofran Tab) 4 mg Q6H PRN PO NAUSEA AND/OR VOMITING; Start at 15:00 Ondansetron HCl (Zofran Inj) 4 mg Q6H PRN IV NAUSEA AND/OR VOMITING Last administered on 09/15/16 08:33; Admin Dose 4 MG; Start 09/11/16 at 15:00 Acetaminophen/ Hydrocodone Bitart ([place] (5/325)) 1 tab Q6H PRN PO MODERATE PAIN LEVEL 4-6 Last administered on 09/14/16 12:31; Admin Dose 1 TAB; Start at 15:00 Morphine Sulfate (morphine) 2 mg Q4H PRN IV SEVERE PAIN LEVEL 7-10 Last administered on 09/15/16 08:33; Admin Dose 2 MG; Start 09/11/16 at 15:00 Docusate Sodium (Colace) 100 mg Q12H PRN PO CONSTIPATION; Start 09/11/16 at 15: 00 Magnesium Hydroxide (Milk Of Mag) 30 ml DAILY PRN PO CONSTIPATION Last administered on 09/14/16 12:31; Admin Dose 30 ML; Start 09/11/16 at 15:00 Mirtazapine (Remeron) 15 mg HS PRN PO INSOMNIA Last administered on 09/13/16 03:14; Admin Dose 15 MG; Start 09/11/16 at 17:00 Prednisolone 40 mg 40 mg DAILY PO Last administered on 09/15/16 08:41; Admin Dose 40 MG; Start 09/11/16 at 19:00; Stop 10/09/16 at 18:59 Ceftriaxone Sodium (Rocephin) 50 ml @ 100 mls/hr Q24H IVPB Last administered on 09/15/16 08:23; Admin Dose 100 MLS/HR; Start 09/12/16 at 08:00; Stop at 00:01 Miscellaneous Information (*Order Clarification Bulletin) MEDICATION REQUIRES CLARIFICATI... Q8H XX ; Start 09/12/16 at 08:30 Furosemide (Lasix) 20 mg DAILY PO Last administered on 09/15/16 08:41; Admin Dose 20 MG; Start 09/14/16 at 09:00 Pantoprazole (Protonix Iv) 40 mg BID@06,18 IV Last administered on 09/15/16 06 :13; Admin Dose 40 MG; Start 09/14/16 at 18:00 MARGY DEL CID MD Sep 15, 2016 12:28
--- NOTE | 2016-09-15 13:15 | PN ---
Date/Time of Note Date/Time of Note DATE: 09/15/16 TIME: 13:13 Assessment/Plan VTE Prophylaxis VTE Prophylaxis Intervention: SCD's Lines/Catheters IV [facility] Type (from [facility] Saline Lock Urinary Cath still in place: No Assessment/Plan Assessment/Plan 46 yo F with pmhx alcoholic cirrhosis cb EVs warranting banding presents with c/ o dark stools, hematemesis and jaundice. sp EGD 7. with multiple EV ligations #hematemesis/dark stools: sp EV banding 7. -GI following -cont rocephin (1g/day x 7 days total), PPI downgraded by GI, octreotide stopped -defer transfusion as long as hgb>7 #jaundice: suspect 2/2 hyperbilirubinemia likely 2/2 alcoholic cirrhosis -started high dose prednisolone (40 mg daily, x 28 days-->started 09.12) as Maddreys Discriminant Function score 40.6 consider checking Lille score/rechecking DF after 1 week to monitor for improvement from steroids -MRCP without obstruction #hypokalemia: RESOLVED resumed lasix #cirrhosis -cont home beta angela of note, bb may increase risk to pt of kidney disease given her advanced alcoholic cirrhosis however given pt is here for possible EVs suspect benefit of this medication outweighs risk at this time. defer to GI -RD eval #R foot/ankle pain sp fall: CT with small foot fracture cs to podiatry service. cheese grader aware #alcoholism: last drink 1 week prior to admission -cessation advised -cont home folic acid #h/o anxiety -cont home Remeron, cymbalta, #h/o hypothyroid: cont home synthroid DVT prophx: SCDs only given concern for variceal bleed Subjective 24 Hr Interval Summary Free Text/Dictation Doing about the same. Dw pt that CT R foot showed a small fracture Exam/Review of Systems Vital Signs Vitals Vital Signs Date Time Temp Pulse Resp B/P Pulse Ox O2 Delivery O2 Flow Rate FiO2 09/15/16 12:29 98.0 73 18 112/67 99 09/12/16 17:23 Room Air Intake and Output 09/14/16 09/14/16 09/15/16 15:00 23:00 07:00 Intake Total 50 ml 720 ml 120 ml Balance 50 ml 720 ml 120 ml Exam jaundiced no mrg lungs clear abd soft no rashes Results Result Diagram: 09/15/16 0603 09/15/16 0603 Results 24 hrs Laboratory Tests Test 09/15/16 06:03 White Blood Count 4.8 # Red Blood Count 2.62 L Hemoglobin 10.2 L Hematocrit 31.4 L Mean Corpuscular Volume 119.8 H Mean Corpuscular Hemoglobin 38.9 H Mean Corpuscular Hemoglobin Concent 32.5 Red Cell Distribution Width 13.6 Platelet Count 131 #L Mean Platelet Volume 10.6 H Neutrophils % 63.5 Lymphocytes % 23.3 Monocytes % 10.9 Eosinophils % 0.6 Basophils % 0.2 Nucleated Red Blood Cells % 0.0 Neutrophils # 3.0 Lymphocytes # 1.1 Monocytes # 0.5 Eosinophils # 0.0 Basophils # 0.0 Nucleated Red Blood Cells # 0.0 Sodium Level 146 H Potassium Level 3.5 Chloride Level 108 Carbon Dioxide Level 23 Anion Gap 19 H Blood Urea Nitrogen 16 Creatinine 1.12 H Glucose Level 97 Calcium Level 8.7 Total Bilirubin 21.4 H Direct Bilirubin 18.60 *H Indirect Bilirubin 2.8 H Aspartate Amino Transf (AST/SGOT) 138 H Alanine Aminotransferase (ALT/SGPT) 85 H Alkaline Phosphatase 358 H Total Protein 8.1 Albumin 3.5 Globulin 4.60 H Albumin/Globulin Ratio 0.76 Medications Medications Current Medications Duloxetine HCl (Cymbalta) 60 mg DAILY PO Last administered on 09/15/16 08:39; Admin Dose 60 MG; Start 09/12/16 at 09:00 Folic Acid (Folic Acid) 1 mg DAILY PO Last administered on 09/15/16 08:39; Admin Dose 1 MG; Start 09/12/16 at 09:00 Propranolol HCl (Inderal) 40 mg BID PO Last administered on 09/15/16 08:43; Admin Dose 40 MG; Start 09/11/16 at 21:00 Topiramate (Topamax) 100 mg BID PO Last administered on 09/15/16 08:42; Admin Dose 100 MG; Start 09/11/16 at 21:00 Ondansetron HCl (Zofran Tab) 4 mg Q6H PRN PO NAUSEA AND/OR VOMITING; Start at 15:00 Ondansetron HCl (Zofran Inj) 4 mg Q6H PRN IV NAUSEA AND/OR VOMITING Last administered on 09/15/16 08:33; Admin Dose 4 MG; Start 09/11/16 at 15:00 Acetaminophen/ Hydrocodone Bitart ([place] (5/325)) 1 tab Q6H PRN PO MODERATE PAIN LEVEL 4-6 Last administered on 09/14/16 12:31; Admin Dose 1 TAB; Start at 15:00 Morphine Sulfate (morphine) 2 mg Q4H PRN IV SEVERE PAIN LEVEL 7-10 Last administered on 09/15/16 12:46; Admin Dose 2 MG; Start 09/11/16 at 15:00 Docusate Sodium (Colace) 100 mg Q12H PRN PO CONSTIPATION; Start 09/11/16 at 15: 00 Magnesium Hydroxide (Milk Of Mag) 30 ml DAILY PRN PO CONSTIPATION Last administered on 09/14/16 12:31; Admin Dose 30 ML; Start 09/11/16 at 15:00 Mirtazapine (Remeron) 15 mg HS PRN PO INSOMNIA Last administered on 09/13/16 03:14; Admin Dose 15 MG; Start 09/11/16 at 17:00 Prednisolone 40 mg 40 mg DAILY PO Last administered on 09/15/16 08:41; Admin Dose 40 MG; Start 09/11/16 at 19:00; Stop 10/09/16 at 18:59 Ceftriaxone Sodium (Rocephin) 50 ml @ 100 mls/hr Q24H IVPB Last administered on 09/15/16 08:23; Admin Dose 100 MLS/HR; Start 09/12/16 at 08:00; Stop at 00:01 Miscellaneous Information (*Order Clarification Bulletin) MEDICATION REQUIRES CLARIFICATI... Q8H XX ; Start 09/12/16 at 08:30 Furosemide (Lasix) 20 mg DAILY PO Last administered on 09/15/16 08:41; Admin Dose 20 MG; Start 09/14/16 at 09:00 Pantoprazole (Protonix Iv) 40 mg BID@06,18 IV Last administered on 09/15/16 06 :13; Admin Dose 40 MG; Start 09/14/16 at 18:00 DK CISSE MD Sep 15, 2016 13:15
--- NOTE | 2016-09-15 21:06 | HP ---
Date/Time of Note Date/Time of Note DATE: 09/15/16 TIME: 20:56 Assessment/Plan VTE Prophylaxis VTE Prophylaxis Intervention: SCD's Lines/Catheters IV Catheter Type (from Nrs): Saline Lock Urinary Cath still in place: No Assessment/Plan Chief Complaint/Hosp Course Right foot pain Problems: Assessment/Plan Right foot pain Right foot and ankle contusion Right foot midfoot fracture/ cuneiforms/ cuboid Edema GI bleeding Peripheral neuropathy Jaundice H/o ETOH abuse Discussed imaging and treatment options. Rec. nonoperative treatment with cast immobilization NWB 4-6 weeks then 6 weeks WB. Due to contusion and need for monitoring rec CAM. rec. periodic ice and elevation of extremity. PT to evaluate for mobility. May need crutches/ walker/ wheelchair. Serial radiographs rec. monthly as outpatient to monitor fracture healing. All questions answered. HPI/ROS Admit Date/Time Admit Date/Time Hx of Present Illness Right foot pain/ contusion. Injury est [address] with midfoot fractures. ROS Pain right/ bruising/edema Constitutional: no complaints Eyes: no complaints ENT: no complaints Respiratory: no complaints Cardiovascular: no complaints Gastrointestinal: blood, flatus, nausea, pain, vomiting Genitourinary: no complaints Musculoskeletal: no complaints Skin: other (jaundice) Neurologic: no complaints Lymphatic: no complaints Psychological: nl mood/affect, no complaints Immunologic: no complaints PMH/Family/Social Past Medical History Medical History: GI bleed, other (cirrhosis) Past Surgical History Past Surgical Hx: endoscopy Social History Smoking Status: Former smoker Exam/Review of Systems Vital Signs Vitals Vital Signs Date Time Temp Pulse Resp B/P Pulse Ox O2 Delivery O2 Flow Rate FiO2 09/15/16 20:19 98.2 63 18 96/59 99 09/12/16 17:23 Room Air Intake and Output 09/14/16 09/14/16 09/15/16 15:00 23:00 07:00 Intake Total 50 ml 720 ml 120 ml Balance 50 ml 720 ml 120 ml Exam Musculoskeletal: other (5/5 DF/ PF right ankle. Pain with abduction of foot), swelling Extremities: edema, normal pulses, other (contusion anterior ankle/ dorsal/ plantar midfoot) Labs Result Diagram: 09/15/1660209/15/16 06 Medications Medications Current Medications Duloxetine HCl (Cymbalta) 60 mg DAILY PO Last administered on 09/15/16 08:39; Admin Dose 60 MG; Start 09/12/16 at 09:00 Folic Acid (Folic Acid) 1 mg DAILY PO Last administered on 09/15/16 08:39; Admin Dose 1 MG; Start 09/12/16 at 09:00 Propranolol HCl (Inderal) 40 mg BID PO Last administered on 09/15/16 08:43; Admin Dose 40 MG; Start 09/11/16 at 21:00 Topiramate (Topamax) 100 mg BID PO Last administered on 09/15/16 08:42; Admin Dose 100 MG; Start 09/11/16 at 21:00 Ondansetron HCl (Zofran Tab) 4 mg Q6H PRN PO NAUSEA AND/OR VOMITING; Start at 15:00 Ondansetron HCl (Zofran Inj) 4 mg Q6H PRN IV NAUSEA AND/OR VOMITING Last administered on 09/15/16 08:33; Admin Dose 4 MG; Start 09/11/16 at 15:00 Acetaminophen/ Hydrocodone Bitart ([place] (5/325)) 1 tab Q6H PRN PO MODERATE PAIN LEVEL 4-6 Last administered on 09/14/16 12:31; Admin Dose 1 TAB; Start at 15:00 Morphine Sulfate (morphine) 2 mg Q4H PRN IV SEVERE PAIN LEVEL 7-10 Last administered on 09/15/16 12:46; Admin Dose 2 MG; Start 09/11/16 at 15:00 Docusate Sodium (Colace) 100 mg Q12H PRN PO CONSTIPATION; Start 09/11/16 at 15: 00 Magnesium Hydroxide (Milk Of Mag) 30 ml DAILY PRN PO CONSTIPATION Last administered on 09/14/16 12:31; Admin Dose 30 ML; Start 09/11/16 at 15:00 Mirtazapine (Remeron) 15 mg HS PRN PO INSOMNIA Last administered on 09/13/16 03:14; Admin Dose 15 MG; Start 09/11/16 at 17:00 Prednisolone 40 mg 40 mg DAILY PO Last administered on 09/15/16 08:41; Admin Dose 40 MG; Start 09/11/16 at 19:00; Stop 10/09/16 at 18:59 Ceftriaxone Sodium (Rocephin) 50 ml @ 100 mls/hr Q24H IVPB Last administered on 09/15/16 08:23; Admin Dose 100 MLS/HR; Start 09/12/16 at 08:00; Stop at 00:01 Miscellaneous Information (*Order Clarification Bulletin) MEDICATION REQUIRES CLARIFICATI... Q8H XX ; Start 09/12/16 at 08:30 Furosemide (Lasix) 20 mg DAILY PO Last administered on 09/15/16 08:41; Admin Dose 20 MG; Start 09/14/16 at 09:00 Pantoprazole (Protonix Iv) 40 mg BID@06,18 IV Last administered on 09/15/16 18 :06; Admin Dose 40 MG; Start 09/14/16 at 18:00 Procedures Procedures Laboratory Tests Test 09/15/16 06:03 White Blood Count 4.810^3/ul Red Blood Count 2.6210^6/ul Hemoglobin 10.2g/dl Hematocrit 31.4% Mean Corpuscular Volume 119.8fl Mean Corpuscular Hemoglobin 38.9pg Mean Corpuscular Hemoglobin Concent 32.5g/dl Red Cell Distribution Width 13.6% Platelet Count 74480^3/UL Mean Platelet Volume 10.6fl Neutrophils % 63.5% Lymphocytes % 23.3% Monocytes % 10.9% Eosinophils % 0.6% Basophils % 0.2% Nucleated Red Blood Cells % 0.0/100WBC Neutrophils # 3.010^3/ul Lymphocytes # 1.110^3/ul Monocytes # 0.510^3/ul Eosinophils # 0.010^3/ul Basophils # 0.010^3/ul Nucleated Red Blood Cells # 0.010^3/ul Sodium Level 146mmol/L Potassium Level 3.5mmol/L Chloride Level 108mmol/L Carbon Dioxide Level 23mmol/L Anion Gap 19 Blood Urea Nitrogen 16mg/dl Creatinine 1.12mg/dl Glucose Level 97mg/dl Calcium Level 8.7mg/dl Total Bilirubin 21.4mg/dl Direct Bilirubin 18.60mg/dl Indirect Bilirubin 2.8mg/dl Aspartate Amino Transf (AST/SGOT) 138IU/L Alanine Aminotransferase (ALT/SGPT) 85IU/L Alkaline Phosphatase 358IU/L Total Protein 8.1g/dl Albumin 3.5g/dl Globulin 4.60g/dl Albumin/Globulin Ratio 0.76 Current Medications Medications (Trade) Dose Ordered Sig/Pravin Route PRN Reason Start Time Stop Time Status Last Admin Dose Admin Pantoprazole 80 mg/Sodium Chloride 100 ml @ 400 mls/hr ONCE STAT IVPB 09/11/16 12:45 09/11/16 12:59 DC 09/11/16 14:06 400 MLS/HR Pantoprazole 80 mg/Sodium Chloride 100 ml @ 10 mls/hr ONCE STAT IV 09/11/16 12:45 09/11/16 17:29 DC 09/11/16 14:50 10 MLS/HR Octreotide Acetate 50 mcg/ Sodium Chloride 26 ml @ 100 mls/hr Q16M STAT IVPB 09/11/16 12:45 09/11/16 13:00 DC 09/11/16 14:06 100 MLS/HR Octreotide Acetate/Sodium Chloride (Sandostatin/NS) 50 ml @ 5 mls/hr ONCE STAT IV 09/11/16 12:45 09/11/16 17:27 DC 09/11/16 14:49 5 MLS/HR Acetaminophen 650 mg 650 mg ONCE STAT PO 09/11/16 12:45 09/11/16 12:48 DC Ceftriaxone Sodium (Rocephin) 50 ml @ 100 mls/hr ONCE STAT IVPB 09/11/16 12:45 09/11/16 13:14 DC 09/11/16 13:45 100 MLS/HR Sodium Chloride 2850 ml 2,850 ml BOLUS OVER 2 HOURS STAT IV* 09/11/16 12:45 09/11/16 12:48 DC 09/11/16 12:45 2,850 ML Potassium Chloride (KCl 10 MEQ/50 ML SW) 50 ml @ 50 mls/hr Q1H IVPB 09/11/16 14:30 09/11/16 17:29 DC 09/11/16 18:53 50 MLS/HR Ondansetron HCl (Zofran Inj) 4 mg BRIDGE ORDER PRN IV NAUSEA AND/OR VOMITING 09/11/16 15:00 09/11/16 16:17 DC Acetaminophen 650 mg 650 mg ER BRIDGE PRN PO MILD PAIN/FEVER 09/11/16 15:00 09/11/16 16:16 DC Potassium Chloride (KCl 40 MEQ/250 ML NS) 250 ml @ 62.5 mls/hr Q4H IVPB 09/11/16 15:00 09/11/16 22:59 Cancel Duloxetine HCl (Cymbalta) 60 mg DAILY PO 09/12/16 09:00 09/15/16 08:39 60 MG Folic Acid (Folic Acid) 1 mg DAILY PO 09/12/16 09:00 09/15/16 08:39 1 MG Levothyroxine Sodium (Synthroid) 88 mcg BEFORE BREAKFAST PO 09/12/16 07:00 09/15/16 06:13 88 MCG Pantoprazole (Protonix Tab) 40 mg DAILY PO 09/12/16 09:00 09/12/16 09:00 DC Propranolol HCl (Inderal) 40 mg BID PO 09/11/16 21:00 09/15/16 08:43 40 MG Topiramate (Topamax) 100 mg BID PO 09/11/16 21:00 09/15/16 08:42 100 MG Miscellaneous Information 20 mg DAILY PO 09/12/16 09:00 09/13/16 19:09 DC IV Flush (NS 3 ml) 3 ml PER PROTOCOL IV 09/11/16 15:00 Ondansetron HCl (Zofran Tab) 4 mg Q6H PRN PO NAUSEA AND/OR VOMITING 09/11/16 15:00 Ondansetron HCl (Zofran Inj) 4 mg Q6H PRN IV NAUSEA AND/OR VOMITING 09/11/16 15:00 09/15/16 08:33 4 MG Acetaminophen/ Hydrocodone Bitart ([place] (5/325)) 1 tab Q6H PRN PO MODERATE PAIN LEVEL 4-6 09/11/16 15:00 09/14/16 12:31 1 TAB Morphine Sulfate (morphine) 2 mg Q4H PRN IV SEVERE PAIN LEVEL 7-10 09/11/16 15:00 09/15/16 12:46 2 MG Docusate Sodium (Colace) 100 mg Q12H PRN PO CONSTIPATION 09/11/16 15:00 Magnesium Hydroxide (Milk Of Mag) 30 ml DAILY PRN PO CONSTIPATION 09/11/16 15:00 09/14/16 12:31 30 ML Mirtazapine (Remeron) 15 mg HS PRN PO INSOMNIA 09/11/16 17:00 09/13/16 03:14 15 MG Prednisolone 40 mg 40 mg DAILY PO 09/11/16 19:00 10/09/16 18:59 09/15/16 08:41 40 MG Pantoprazole 80 mg/Sodium Chloride 100 ml @ 10 mls/hr Q10H IV 09/11/16 19:00 09/14/16 16:36 DC 09/14/16 16:29 10 MLS/HR Octreotide Acetate 1 mg/ Sodium Chloride 100 ml @ 5 mls/hr Q20H IV 09/11/16 19:00 09/14/16 16:36 DC 09/13/16 23:01 5 MLS/HR Ceftriaxone Sodium (Rocephin) 50 ml @ 100 mls/hr Q24H IVPB 09/12/16 08:00 09/17/16 00:01 09/15/16 08:23 100 MLS/HR Miscellaneous Information MEDICATION REQUIRES CLARIFICATI... Q8H XX 09/12/16 08:30 Potassium Chloride 250 ml @ 62.5 mls/hr ONCE ONCE IVPB 09/12/16 09:00 09/12/16 12:59 DC 09/12/16 10:36 62.5 MLS/HR Propofol (Diprivan) 40 ml @ ud STK-MED ONCE .ROUTE 09/12/16 18:03 09/12/16 19:35 DC Furosemide (Lasix) 20 mg DAILY PO 09/14/16 09:00 09/15/16 08:41 20 MG Potassium Chloride (Klor-Con 20) 40 meq ONCE STAT PO 09/13/16 18:00 09/13/16 18:09 DC 09/13/16 20:08 40 MEQ Pantoprazole (Protonix Iv) 40 mg BID@06,18 IV 09/14/16 18:00 09/15/16 18:06 40 MG ANNABEL ELLIOTT DPM Sep 15, 2016 21:06
[2016-09-16] VITALS (17 sets, daily range): BP systolic 78–103; BP diastolic 45–68; PULSE 58–80; RESP 18–20
[2016-09-16] MEDS: [UNRECOGNIZED DRUG - REMARK] XX SCH ×3 (00:30→16:30)
[2016-09-16] MEDS: PANTOPRAZOLE 40 MG INJ IV SCH (05:29)
[2016-09-16 06:31] LABS: BASOPHILS % 0.3 % (0.0-2.0); EOSINOPHILS # 0.1 10^3/ul (0.0-0.5); EOSINOPHILS % 1.2 % (0.0-7.0); HEMATOCRIT 32.2 % (37.0-47.0); LYMPHOCYTES # 1.3 10^3/ul (0.8-2.9); LYMPHOCYTES % 18.6 % (15.0-51.0); MEAN CORPUSCULAR HEMOGLOBIN 40.4 pg (29.0-33.0); MEAN CORPUSCULAR HGB CONC 34.2 g/dl (32.0-37.0); MEAN CORPUSCULAR VOLUME 118.4 fl (82.0-101.0); MEAN PLATELET VOLUME 10.5 fl (7.4-10.4); MONOCYTE # 0.7 10^3/ul (0.3-0.9); MONOCYTES % 10.4 % (0.0-11.0); NEUTROPHIL # 4.8 10^3/ul (1.6-7.5); NEUTROPHILS % 68.8 % (39.0-77.0); PLATELET COUNT 165 10^3/UL (140-415); RED BLOOD COUNT 2.72 10^6/ul (4.20-5.40); RED CELL DISTRIBUTION WIDTH 13.5 % (11.5-14.5); WHITE BLOOD COUNT 6.9 10^3/ul (4.8-10.8)
[2016-09-16 07:09] LABS: ALBUMIN 3.6 g/dl (3.3-4.9); ALBUMIN/GLOBULIN RATIO 0.75; BILIRUBIN,INDIRECT 2.8 mg/dl (0-1.1); BILIRUBIN,TOTAL 21.6 mg/dl (0.2-1.3); CALCIUM 8.8 mg/dl (8.4-10.2); CREATININE 1.12 mg/dl (0.44-1.00); POTASSIUM 3.4 mmol/L (3.5-5.1); TOTAL PROTEIN 8.4 g/dl (6.1-8.1)
[2016-09-16 07:15] LABS: BILIRUBIN,DIRECT 18.8 mg/dl (0.00-0.20)
[2016-09-16] MEDS: CEFTRIAXONE 1 GM/50 ML (PMX) 50 ML IVPB SCH (07:46)
[2016-09-16] MEDS: LEVOTHYROXINE 88 MCG TAB PO SCH (07:46)
[2016-09-16] MEDS: PROPRANOLOL 40 MG TAB PO SCH ×2 (09:00→21:00)
[2016-09-16] MEDS: FUROSEMIDE 20 MG TAB PO SCH (09:00)
[2016-09-16] MEDS: TOPIRAMATE 100 MG TAB PO SCH ×2 (09:32→21:31)
[2016-09-16] MEDS: FOLIC ACID 1 MG TAB PO SCH (09:32)
[2016-09-16] MEDS: DULOXETINE 30 MG CAP DR PO SCH (09:33)
[2016-09-16] MEDS: predniSOLONE 5 MG TAB PO SCH (09:33)
[2016-09-16] MEDS ORDERED: POTASSIUM CHLORIDE (SR) 20 MEQ TAB PO STA (15:48)
--- NOTE | 2016-09-16 15:52 | PN ---
Date/Time of Note Date/Time of Note DATE: 09/16/16 TIME: 15:48 Assessment/Plan VTE Prophylaxis VTE Prophylaxis Intervention: SCD's Lines/Catheters IV [facility]ter Type (from [facility]): Saline Lock Urinary Cath still in place: No Assessment/Plan Assessment/Plan 46 yo F with pmhx alcoholic cirrhosis cb EVs warranting banding presents with c/ o dark stools, hematemesis and jaundice. sp EGD 7. with multiple EV ligations , also with L foot fracture following a fall at home #hematemesis/dark stools: sp EV banding 7. -GI following -cont rocephin (1g/day x 7 days total-->last day 7.), PPI downgraded by GI, octreotide stopped talk to GI about when/if PPI can be changed from BID to q daily -defer transfusion as long as hgb>7 #jaundice: suspect 2/2 hyperbilirubinemia likely 2/2 alcoholic cirrhosis -started high dose prednisolone (40 mg daily, x 28 days-->started .) as Maddreys Discriminant Function score 40.6 consider checking Lille score/rechecking DF after 1 week to monitor for improvement from steroids (day 7 would be 8.1) -MRCP without obstruction #hypokalemia: RESOLVED resumed lasix #cirrhosis -cont home beta angela of note, bb may increase risk to pt of kidney disease given her advanced alcoholic cirrhosis however given pt is here for possible EVs suspect benefit of this medication outweighs risk at this time. defer to GI -RD eval #R foot/ankle pain sp fall: CT with cuboid frx -sp podiatry eval. advised 4-6w NWB and pod f/u -PT eval in process #alcoholism: last drink 1 week prior to admission -cessation advised -cont home folic acid #h/o anxiety -cont home Remeron, cymbalta, #h/o hypothyroid: cont home synthroid DVT prophx: SCDs only given concern for variceal bleed Subjective 24 Hr Interval Summary Free Text/Dictation Concerned that she might need to go to a SNF/[facility] after discharge BP meds held this AM for slightly low BP Exam/Review of Systems Vital Signs Vitals Vital Signs Date Time Temp Pulse Resp B/P Pulse Ox O2 Delivery O2 Flow Rate FiO2 09/16/16 12:45 98.0 75 18 98/57 97 09/16/16 09:45 Room Air Intake and Output 09/15/16 09/15/16 09/16/16 15:00 23:00 07:00 Intake Total 700 ml 600 ml Balance 700 ml 600 ml Exam jaundice with scleral icterus lungs clear no mrg abd soft L ankle/foot wrapped Results Result Diagram: 09/16/16 0551 09/16/16 0551 Results 24 hrs Laboratory Tests Test 09/16/16 05:51 White Blood Count 6.9 # Red Blood Count 2.72 L Hemoglobin 11.0 L Hematocrit 32.2 L Mean Corpuscular Volume 118.4 H Mean Corpuscular Hemoglobin 40.4 H Mean Corpuscular Hemoglobin Concent 34.2 Red Cell Distribution Width 13.5 Platelet Count 165 # Mean Platelet Volume 10.5 H Neutrophils % 68.8 Lymphocytes % 18.6 Monocytes % 10.4 Eosinophils % 1.2 Basophils % 0.3 Nucleated Red Blood Cells % 0.0 Neutrophils # 4.8 Lymphocytes # 1.3 Monocytes # 0.7 Eosinophils # 0.1 Basophils # 0.0 Nucleated Red Blood Cells # 0.0 Sodium Level 145 H Potassium Level 3.4 L Chloride Level 108 Carbon Dioxide Level 23 Anion Gap 17 H Blood Urea Nitrogen 18 Creatinine 1.12 H Glucose Level 88 Calcium Level 8.8 Total Bilirubin 21.6 H Direct Bilirubin 18.80 *H Indirect Bilirubin 2.8 H Aspartate Amino Transf (AST/SGOT) 159 H Alanine Aminotransferase (ALT/SGPT) 99 H Alkaline Phosphatase 381 H Total Protein 8.4 H Albumin 3.6 Globulin 4.80 H Albumin/Globulin Ratio 0.75 Medications Medications Current Medications Duloxetine HCl (Cymbalta) 60 mg DAILY PO Last administered on 09/16/16 09:33; Admin Dose 60 MG; Start 09/12/16 at 09:00 Folic Acid (Folic Acid) 1 mg DAILY PO Last administered on 09/16/16 09:32; Admin Dose 1 MG; Start 09/12/16 at 09:00 Propranolol HCl (Inderal) 40 mg BID PO Last administered on 09/15/16 08:43; Admin Dose 40 MG; Start 09/11/16 at 21:00 Topiramate (Topamax) 100 mg BID PO Last administered on 09/16/16 09:32; Admin Dose 100 MG; Start 09/11/16 at 21:00 Ondansetron HCl (Zofran Tab) 4 mg Q6H PRN PO NAUSEA AND/OR VOMITING; Start at 15:00 Ondansetron HCl (Zofran Inj) 4 mg Q6H PRN IV NAUSEA AND/OR VOMITING Last administered on 09/15/16 21:27; Admin Dose 4 MG; Start 09/11/16 at 15:00 Acetaminophen/ Hydrocodone Bitart ([place] (5/325)) 1 tab Q6H PRN PO MODERATE PAIN LEVEL 4-6 Last administered on 09/14/16 12:31; Admin Dose 1 TAB; Start at 15:00 Morphine Sulfate (morphine) 2 mg Q4H PRN IV SEVERE PAIN LEVEL 7-10 Last administered on 09/15/16 21:27; Admin Dose 2 MG; Start 09/11/16 at 15:00 Docusate Sodium (Colace) 100 mg Q12H PRN PO CONSTIPATION; Start 09/11/16 at 15: 00 Magnesium Hydroxide (Milk Of Mag) 30 ml DAILY PRN PO CONSTIPATION Last administered on 09/14/16 12:31; Admin Dose 30 ML; Start 09/11/16 at 15:00 Mirtazapine (Remeron) 15 mg HS PRN PO INSOMNIA Last administered on 09/13/16 03:14; Admin Dose 15 MG; Start 09/11/16 at 17:00 Prednisolone 40 mg 40 mg DAILY PO Last administered on 09/16/16 09:33; Admin Dose 40 MG; Start 09/11/16 at 19:00; Stop 10/09/16 at 18:59 Ceftriaxone Sodium (Rocephin) 50 ml @ 100 mls/hr Q24H IVPB Last administered on 09/16/16 07:46; Admin Dose 100 MLS/HR; Start 09/12/16 at 08:00; Stop at 00:01 Miscellaneous Information (*Order Clarification Bulletin) MEDICATION REQUIRES CLARIFICATI... Q8H XX ; Start 09/12/16 at 08:30 Furosemide (Lasix) 20 mg DAILY PO Last administered on 09/15/16 08:41; Admin Dose 20 MG; Start 09/14/16 at 09:00 Pantoprazole (Protonix Iv) 40 mg BID@,18 IV Last administered on 09/16/16t 05 :29; Admin Dose 40 MG; Start 09/14/16 at 18:00 DK CISSE MD Sep 16, 2016 15:52
[2016-09-16] MEDS: PANTOPRAZOLE (EC) 40 MG TAB PO SCH (18:14)
[2016-09-17] VITALS (11 sets, daily range): BP systolic 87–93; BP diastolic 51–64; PULSE 63–77; RESP 18–20
[2016-09-17] MEDS: [UNRECOGNIZED DRUG - REMARK] XX SCH ×3 (00:30→15:37)
[2016-09-17] MEDS: PANTOPRAZOLE (EC) 40 MG TAB PO SCH ×2 (06:00→17:03)
[2016-09-17 06:26] LABS: BASOPHILS % 0.1 % (0.0-2.0); EOSINOPHILS # 0.1 10^3/ul (0.0-0.5); EOSINOPHILS % 0.9 % (0.0-7.0); HEMATOCRIT 34.2 % (37.0-47.0); HEMOGLOBIN 11.4 g/dl (12.0-16.0); LYMPHOCYTES # 1.5 10^3/ul (0.8-2.9); LYMPHOCYTES % 18.5 % (15.0-51.0); MEAN CORPUSCULAR HEMOGLOBIN 39.3 pg (29.0-33.0); MEAN CORPUSCULAR HGB CONC 33.3 g/dl (32.0-37.0); MEAN CORPUSCULAR VOLUME 117.9 fl (82.0-101.0); MEAN PLATELET VOLUME 10.6 fl (7.4-10.4); MONOCYTE # 0.7 10^3/ul (0.3-0.9); MONOCYTES % 8.2 % (0.0-11.0); NEUTROPHIL # 5.8 10^3/ul (1.6-7.5); NEUTROPHILS % 71.3 % (39.0-77.0); PLATELET COUNT 168 10^3/UL (140-415); RED CELL DISTRIBUTION WIDTH 13.5 % (11.5-14.5); WHITE BLOOD COUNT 8.1 10^3/ul (4.8-10.8)
[2016-09-17 07:02] LABS: ALBUMIN 3.6 g/dl (3.3-4.9); ALBUMIN/GLOBULIN RATIO 0.75; BILIRUBIN,INDIRECT 2.8 mg/dl (0-1.1); CALCIUM 9.1 mg/dl (8.4-10.2); CREATININE 1.25 mg/dl (0.44-1.00); POTASSIUM 3.7 mmol/L (3.5-5.1); TOTAL PROTEIN 8.4 g/dl (6.1-8.1)
[2016-09-17 07:06] LABS: BILIRUBIN,DIRECT 19.4 mg/dl (0.00-0.20); BILIRUBIN,TOTAL 22.2 mg/dl (0.2-1.3)
[2016-09-17] MEDS: LEVOTHYROXINE 88 MCG TAB PO SCH (07:34)
[2016-09-17] MEDS: HYDROCODONE/APAP (5/325) TAB PO PRN (07:42)
[2016-09-17] MEDS: PROPRANOLOL 40 MG TAB PO SCH ×2 (09:00→21:00)
[2016-09-17] MEDS: FUROSEMIDE 20 MG TAB PO SCH (09:00)
[2016-09-17] MEDS: FOLIC ACID 1 MG TAB PO SCH (09:06)
[2016-09-17] MEDS: DULOXETINE 30 MG CAP DR PO SCH (09:06)
[2016-09-17] MEDS: TOPIRAMATE 100 MG TAB PO SCH ×2 (09:07→21:38)
[2016-09-17] MEDS: predniSOLONE 5 MG TAB PO SCH (09:11)
--- NOTE | 2016-09-17 12:44 | PN ---
Date/Time of Note Date/Time of Note DATE: 09/17/16 TIME: 12:35 Assessment/Plan VTE Prophylaxis VTE Prophylaxis Intervention: SCD's Lines/Catheters IV C[facility]ter Type (from [facility]): Saline Lock Urinary Cath still in place: No Assessment/Plan Chief Complaint/Hosp Course Assessment/Plan: 46 yo F with pmhx alcoholic cirrhosis cb EVs warranting banding presents with c/o dark stools, hematemesis and jaundice. S/P EGD . with multiple EV ligations, also with L foot fracture following a fall at home. #hematemesis/dark stools: sp EV banding . -GI following, follow-up their recommendations -cont rocephin (1g/day x 7 days total-->last day 09.17 today), PPI downgraded by GI, octreotide stopped -Continue PPI p.o. twice daily for now -defer transfusion as long as hgb>7 #jaundice: suspect 2/2 hyperbilirubinemia likely 2/2 alcoholic cirrhosis, as total bilirubin and direct bilirubin are very high -started high dose prednisolone (40 mg daily, x 28 days-->started 09.12) as Maddreys Discriminant Function score 40.6 consider checking L[place] score/rechecking DF after 1 week to monitor for improvement from steroids (day 7 would be 8.1) -MRCP without obstruction #hypokalemia: RESOLVED resumed lasix #cirrhosis -cont home beta angela of note, bb may increase risk to pt of kidney disease given her advanced alcoholic cirrhosis however given pt is here for possible EVs suspect benefit of this medication outweighs risk at this time. defer to GI, and monitor blood pressure #R foot/ankle pain sp fall: CT with cuboid frx -sp podiatry eval. advised 4-6w NWB and pod f/u, have also ordered boot and we are waiting for this - Continue physical therapy as well #alcoholism: last drink 1 week prior to admission -cessation advised -cont home folic acid #h/o anxiety -cont home Remeron, cymbalta, #h/o hypothyroid: cont home synthroid DVT prophx: SCDs only given concern for variceal bleed Problems: Subjective 24 Hr Interval Summary Free Text/Dictation Patient worked with physical therapy this morning. No signs of any bleeding. No acute events overnight. Exam/Review of Systems Vital Signs Vitals Vital Signs Date Time Temp Pulse Resp B/P Pulse Ox O2 Delivery O2 Flow Rate FiO2 09/17/16 12:24 98.0 78 18 87/53 97 09/17/16 04:00 Room Air Intake and Output 09/16/16 09/16/16 09/17/16 15:00 23:00 07:00 Intake Total 50 ml 800 ml 500 ml Output Total 1500 ml Balance 50 ml -700 ml 500 ml Exam Lying in bed, sleeping, no acute distress jaundice with scleral icterus lungs clear no mrg abd soft L ankle/foot wrapped Results Result Diagram: 09/17/16 0552 09/17/16 0552 Results 24 hrs Laboratory Tests Test 09/17/16 05:52 White Blood Count 8.1 Red Blood Count 2.90 L Hemoglobin 11.4 L Hematocrit 34.2 L Mean Corpuscular Volume 117.9 H Mean Corpuscular Hemoglobin 39.3 H Mean Corpuscular Hemoglobin Concent 33.3 Red Cell Distribution Width 13.5 Platelet Count 168 Mean Platelet Volume 10.6 H Neutrophils % 71.3 Lymphocytes % 18.5 Monocytes % 8.2 Eosinophils % 0.9 Basophils % 0.1 Nucleated Red Blood Cells % 0.0 Neutrophils # 5.8 Lymphocytes # 1.5 Monocytes # 0.7 Eosinophils # 0.1 Basophils # 0.0 Nucleated Red Blood Cells # 0.0 Sodium Level 146 H Potassium Level 3.7 Chloride Level 108 Carbon Dioxide Level 20 L Anion Gap 22 H Blood Urea Nitrogen 20 Creatinine 1.25 H Glucose Level 100 Calcium Level 9.1 Total Bilirubin 22.2 H Direct Bilirubin 19.40 *H Indirect Bilirubin 2.8 H Aspartate Amino Transf (AST/SGOT) 149 H Alanine Aminotransferase (ALT/SGPT) 108 H Alkaline Phosphatase 416 H Total Protein 8.4 H Albumin 3.6 Globulin 4.80 H Albumin/Globulin Ratio 0.75 Medications Medications Current Medications Duloxetine HCl (Cymbalta) 60 mg DAILY PO Last administered on 09/17/16 09:06; Admin Dose 60 MG; Start 09/12/16 at 09:00 Folic Acid (Folic Acid) 1 mg DAILY PO Last administered on 09/17/16 09:06; Admin Dose 1 MG; Start 09/12/16 at 09:00 Propranolol HCl (Inderal) 40 mg BID PO Last administered on 09/15/16 08:43; Admin Dose 40 MG; Start 09/11/16 at 21:00 Topiramate (Topamax) 100 mg BID PO Last administered on 09/17/16 09:07; Admin Dose 100 MG; Start 09/11/16 at 21:00 Ondansetron HCl (Zofran Tab) 4 mg Q6H PRN PO NAUSEA AND/OR VOMITING; Start at 15:00 Ondansetron HCl (Zofran Inj) 4 mg Q6H PRN IV NAUSEA AND/OR VOMITING Last administered on 09/15/16 21:27; Admin Dose 4 MG; Start 09/11/16 at 15:00 Acetaminophen/ Hydrocodone Bitart ([place] (5/325)) 1 tab Q6H PRN PO MODERATE PAIN LEVEL 4-6 Last administered on 09/17/16 07:42; Admin Dose 1 TAB; Start at 15:00 Morphine Sulfate (morphine) 2 mg Q4H PRN IV SEVERE PAIN LEVEL 7-10 Last administered on 09/15/16 21:27; Admin Dose 2 MG; Start 09/11/16 at 15:00 Docusate Sodium (Colace) 100 mg Q12H PRN PO CONSTIPATION; Start 09/11/16 at 15: 00 Magnesium Hydroxide (Milk Of Mag) 30 ml DAILY PRN PO CONSTIPATION Last administered on 09/14/16 12:31; Admin Dose 30 ML; Start 09/11/16 at 15:00 Mirtazapine (Remeron) 15 mg HS PRN PO INSOMNIA Last administered on 09/13/16 03:14; Admin Dose 15 MG; Start 09/11/16 at 17:00 Prednisolone (Prednisolone) 40 mg DAILY PO Last administered on 09/17/16 09:11 ; Admin Dose 40 MG; Start 09/11/16 at 19:00; Stop 10/09/16 at 18:59 Miscellaneous Information (*Order Clarification Bulletin) MEDICATION REQUIRES CLARIFICATI... Q8H XX ; Start 09/12/16 at 08:30 Furosemide (Lasix) 20 mg DAILY PO Last administered on 09/15/16 08:41; Admin Dose 20 MG; Start 09/14/16 at 09:00 Pantoprazole (Protonix Tab) 40 mg BID@,18 PO Last administered on 09/17/16t 06:00; Admin Dose 40 MG; Start 09/16/16 at 18:00 TAMIKA LOJA Sep 17, 2016 12:44
[2016-09-17] MEDS ORDERED: morphine 4 MG/ML VIAL IV PRN (15:00)
[2016-09-18] VITALS (10 sets, daily range): BP systolic 92–108; BP diastolic 54–71; PULSE 72–86; RESP 18–20
[2016-09-18] MEDS: [UNRECOGNIZED DRUG - REMARK] XX SCH ×2 (00:30→08:30)
[2016-09-18] MEDS: PANTOPRAZOLE (EC) 40 MG TAB PO SCH (06:17)
[2016-09-18] MEDS: LEVOTHYROXINE 88 MCG TAB PO SCH (06:17)
[2016-09-18 07:43] LABS: BASOPHILS % 0.2 % (0.0-2.0); EOSINOPHILS # 0.1 10^3/ul (0.0-0.5); EOSINOPHILS % 0.9 % (0.0-7.0); HEMATOCRIT 33.2 % (37.0-47.0); HEMOGLOBIN 10.9 g/dl (12.0-16.0); LYMPHOCYTES # 1.3 10^3/ul (0.8-2.9); LYMPHOCYTES % 14.4 % (15.0-51.0); MEAN CORPUSCULAR HEMOGLOBIN 38.4 pg (29.0-33.0); MEAN CORPUSCULAR HGB CONC 32.8 g/dl (32.0-37.0); MEAN CORPUSCULAR VOLUME 116.9 fl (82.0-101.0); MEAN PLATELET VOLUME 10.2 fl (7.4-10.4); MONOCYTE # 0.7 10^3/ul (0.3-0.9); MONOCYTES % 7.4 % (0.0-11.0); NEUTROPHIL # 7.1 10^3/ul (1.6-7.5); NEUTROPHILS % 76.2 % (39.0-77.0); PLATELET COUNT 173 10^3/UL (140-415); RED BLOOD COUNT 2.84 10^6/ul (4.20-5.40); RED CELL DISTRIBUTION WIDTH 13.2 % (11.5-14.5); WHITE BLOOD COUNT 9.3 10^3/ul (4.8-10.8)
[2016-09-18 08:03] LABS: MAGNESIUM 2.1 mg/dl (1.7-2.5); PHOSPHORUS 3.7 mg/dl (2.5-4.9)
[2016-09-18 08:06] LABS: ALBUMIN 3.5 g/dl (3.3-4.9); ALBUMIN/GLOBULIN RATIO 0.77; BILIRUBIN,INDIRECT 2.8 mg/dl (0-1.1); CREATININE 1.08 mg/dl (0.44-1.00); POTASSIUM 3.5 mmol/L (3.5-5.1)
[2016-09-18 08:11] LABS: BILIRUBIN,DIRECT 19.2 mg/dl (0.00-0.20)
[2016-09-18] MEDS: FOLIC ACID 1 MG TAB PO SCH (08:34)
[2016-09-18] MEDS: DULOXETINE 30 MG CAP DR PO SCH (08:34)
[2016-09-18] MEDS: predniSOLONE 5 MG TAB PO SCH (08:35)
[2016-09-18] MEDS: FUROSEMIDE 20 MG TAB PO SCH (08:35)
[2016-09-18] MEDS: TOPIRAMATE 100 MG TAB PO SCH (08:36)
[2016-09-18] MEDS: PROPRANOLOL 40 MG TAB PO SCH (08:38)
--- NOTE | 2016-09-18 11:23 | PDOCDIS ---
Discharge Instructions CONDITION Patient Condition: Stable HOME CARE INSTRUCTIONS: Special Diet: 2G NA ACTIVITY: Activity Restrictions: Slowly Increase Activity FOLLOW UP/APPOINTMENTS Follow-up Plan Please take your medications as prescribed. Specifically your steroid medicine which you will need for another 22 days. Please see your liver specialist and GI doctor in the clinic in the next 1-2 weeks. TAMIKA LOJA Sep 18, 2016 11:23
[2016-09-18] MEDS ORDERED: PANT40TA4 PO (11:24)
[2016-09-18] MEDS ORDERED: PRED5TAB50 PO (11:24)
--- NOTE | 2016-09-18 11:34 | DS ---
Date/Time of Note Date/Time of Note DATE: 09/18/16 TIME: 11:25 Discharge Summary Admission/Discharge Info Admit Date/Time Sep 11, 2016 at 14:32 Discharge Date/Time Discharge Diagnosis #hematemesis/dark stools: sp EV banding . #jaundice: suspect 2/2 hyperbilirubinemia likely 2/2 alcoholic cirrhosis, as total bilirubin and direct bilirubin are very high -started high dose prednisolone (40 mg daily, x 28 days-->started 09.12) a -MRCP without obstruction #hypokalemia: RESOLVED resumed lasix #cirrhosis -cont home beta angela #R foot/ankle pain sp fall: CT with cuboid frx -sp podiatry eval. advised 4-6w NWB and pod f/u, have also ordered boot - Continue physical therapy as well #alcoholism: last drink 1 week prior to admission -cessation advised #h/o anxiety -cont home Remeron, cymbalta, #h/o hypothyroid Patient Condition: Stable Hospital Course 46 yo F with pmhx alcoholic cirrhosis c/b EVs requiring banding presents with c/ o 1 week of new jaundice and 5 days of dark stools and hematemesis prior to this admit along with +nausea. Also reported mild increase in abd distension. + itching since jaundice onset. Pt states her last drink of alcohol was 7 days [employer] , before that was drinking 6 beers/day. Also states she tripped on her R ankle last week at home and has been unable to weight bear on that foot/ankle since. She was admitted to telemetry floor and seen by GI and podiatry teams. She was treated for alcoholic hepatitis this admission with p.o. steroid. She also had hematemesis, and was started on Protonix and octreotide drips initially. She underwent EGD which showed: Grade IV/IV esophageal varices Post endoscopic variceal ligation 5 Portal hypertensive gastropathy Maddreys Discriminant Function score 40.6 Patient's labs were checked daily including her liver enzymes, which remained elevated. She also was seen by podiatry team for findings of right foot and ankle contusion, Right foot midfoot fracture/ cuneiforms/ cuboid. They recommended a special boot which the patient had placed for her right lower extremity. She worked with physical therapy as well. She was able to ablate with assistance. Tolerated p.o. diet. After getting clearance from eyewear consultant teams and podiatry teams, she will be discharged home today in improved condition. She will follow up with liver specialist along with other GI doctor and podiatry team in the clinic in the next 1-2 weeks. Consider checking Lille score/rechecking DF after 1 week to monitor for improvement from steroids. See below for full discharge medication list. Again, she will take the prednisolone 40 mg daily for another 22 days to complete a 28 day total treatment. Home Meds Active Scripts Pantoprazole* (Pantoprazole*) 40 Mg Tablet.dr, 40 MG PO BID@, #60 4 Refills Prov:TAMIKA LOJA S. 09/18/16 Prednisolone* (Millipred*) 5 Mg Tab, 40 MG PO DAILY for 22 Days, #22 TAB Prov:TAMIKA LOJA S. 09/18/16 Reported Medications Mirtazapine* (Mirtazapine*) 15 Mg Tablet, 15 MG PO HS Y for INSOMNIA, TAB 09/11/16 Topiramate* (Topiramate*) 100 Mg Tablet, 100 MG PO BID, TAB 09/11/16 Pantoprazole* (Protonix*) 40 Mg Tablet.dr, 40 MG PO DAILY, TAB 09/11/16 Levothyroxine Sodium* (Levoxyl*) 88 Mcg Tablet, 88 MCG PO BEFORE BREAKFAST, #30 TAB 09/11/16 Duloxetine Hcl* (Duloxetine Hcl*) 60 Mg Capsule.dr, 60 MG PO DAILY, #30 CAP 09/19/15 Propranolol Hcl* (Propranolol Hcl*) 40 Mg Tablet, 40 MG PO BID, TAB 09/19/13 Furosemide* (Furosemide*) 20 Mg Tablet, 20 MG PO DAILY 12/04/12 Folic Acid* (Folic Acid*) 1 Mg Tablet, 1 MG PO 12/04/12 Discontinued Reported Medications Lurasidone Hcl (LATUDA) 20 Mg Tablet, 20 MG PO DAILY, #30 TAB 09/11/16 Estrogen,Conj-Medroxyprogest Acet (Prempro) 0.3-1.5 Mg Tablet, 1 TAB PO DAILY, TAB 09/19/15 Fluoxetine Hcl* (Fluoxetine Hcl*) 40 Mg Capsule, 60 MG PO DAILY, CAP 09/19/15 Gabapentin* (Gabapentin*) 800 Mg Tablet, 900 MG PO TID, #90 TAB 09/19/15 Topiramate* (Topiramate*) 25 Mg Cap.sprink, 25 MG PO DAILY, CAP 09/19/15 Levothyroxine Sodium* (Levothyroxine Sodium*) 75 Mcg Tablet, 75 MCG PO BEFORE BREAKFAST, #30 TAB 09/19/15 Duloxetine Hcl* (Duloxetine Hcl*) 30 Mg Capsule.dr, 30 MG PO DAILY, CAP 12/30/13 Citalopram Hydrobromide (Citalopram) 10 Mg/5 Ml Solution, 20 MG GTB DAILY, ML 12/30/13 Spironolactone* (Aldactone*) 50 Mg Tablet, 50 MG PO DAILY, TAB 12/30/13 Thiamine* (Vitamin B-1*) 100 Mg Tablet, 100 MG PO DAILY, TAB 09/19/13 Primary Care Provider Laura Romero Time spent on discharge: > 30 minutes Pending Labs Laboratory Tests Test 09/18/16 06:47 White Blood Count 9.310^3/ul (4.8-10.8) Red Blood Count 2.8410^6/ul (4.20-5.40) Hemoglobin 10.9g/dl (12.0-16.0) Hematocrit 33.2% (37.0-47.0) Mean Corpuscular Volume 116.9fl (82.0-101.0) Mean Corpuscular Hemoglobin 38.4pg (29.0-33.0) Mean Corpuscular Hemoglobin Concent 32.8g/dl (32.0-37.0) Red Cell Distribution Width 13.2% (11.5-14.5) Platelet Count 80428^3/UL (140-415) Mean Platelet Volume 10.2fl (7.4-10.4) Neutrophils % 76.2% (39.0-77.0) Lymphocytes % 14.4% (15.0-51.0) Monocytes % 7.4% (0.0-11.0) Eosinophils % 0.9% (0.0-7.0) Basophils % 0.2% (0.0-2.0) Nucleated Red Blood Cells % 0.0/100WBC (0.0-0.0) Neutrophils # 7.110^3/ul (1.6-7.5) Lymphocytes # 1.310^3/ul (0.8-2.9) Monocytes # 0.710^3/ul (0.3-0.9) Eosinophils # 0.110^3/ul (0.0-0.5) Basophils # 0.010^3/ul (0.0-0.1) Nucleated Red Blood Cells # 0.010^3/ul (0.0-0.0) Sodium Level 143mmol/L (135-144) Potassium Level 3.5mmol/L (3.5-5.1) Chloride Level 107mmol/L (97-110) Carbon Dioxide Level 19mmol/L (21-31) Anion Gap 21 (8-16) Blood Urea Nitrogen 18mg/dl (7-20) Creatinine 1.08mg/dl (0.44-1.00) Glucose Level 78mg/dl (70-220) Calcium Level 9.0mg/dl (8.4-10.2) Phosphorus Level 3.7mg/dl (2.5-4.9) Magnesium Level 2.1mg/dl (1.7-2.5) Total Bilirubin 22.0mg/dl (0.2-1.3) Direct Bilirubin 19.20mg/dl (0.00-0.20) Indirect Bilirubin 2.8mg/dl (0-1.1) Aspartate Amino Transf (AST/SGOT) 141IU/L (15-46) Alanine Aminotransferase (ALT/SGPT) 118IU/L (13-69) Alkaline Phosphatase 423IU/L (42-121) Total Protein 8.0g/dl (6.1-8.1) Albumin 3.5g/dl (3.3-4.9) Globulin 4.50g/dl (1.3-3.2) Albumin/Globulin Ratio 0.77 TAMIKA LOJA Sep 18, 2016 11:34
--- NOTE | 2016-09-18 14:24 | PN ---
Date/Time of Note Date/Time of Note DATE: 09/18/16 TIME: 14:21 Assessment/Plan VTE Prophylaxis VTE Prophylaxis Intervention: ambulation Lines/Catheters IV C[facility]ter Type (from [facility] Saline Lock Urinary Cath still in place: No Assessment/Plan Assessment/Plan Assessment * GI bleeding/Hematemesis EGD Grade IV/IV esophageal varices Post endoscopic variceal ligation 5 Portal hypertensive gastropathy * Jaundice Alcoholic hepatitis/Cirrhosis * Chronic alcoholism Plan * Stable for outpatient management * Case discussed with Dr Montgomery Subjective 24 Hr Interval Summary Free Text/Dictation * Course reviewed with RN * Patient seen and examined * No untoward events overnight Exam/Review of Systems Vital Signs Vitals Vital Signs Date Time Temp Pulse Resp B/P Pulse Ox O2 Delivery O2 Flow Rate FiO2 09/18/16 12:37 80 09/18/16 11:21 98.5 20 97/54 98 09/17/16 04:00 Room Air Intake and Output 09/17/16 09/17/16 09/18/16 15:00 23:00 07:00 Intake Total 800 ml 500 ml Output Total 2300 ml 1000 ml Balance -1500 ml -500 ml Exam Constitutional: alert, frail Head: atraumatic, normocephalic Eyes: icteric Neck: non-tender, supple Respiratory: clear to auscultation, normal air movement Cardiovascular: nl pulses, regular rate and rhythm Gastrointestinal: non-tender, soft Musculoskeletal: nl extremities to inspection, nl gait and stance Extremities: normal pulses Neurological: nl speech, nl strength Skin: nl turgor, No rash or lesions Lymph: nl lymph nodes Results Result Diagram: 09/18/16 0647 09/18/16 0647 Results 24 hrs Laboratory Tests Test 09/18/16 06:47 White Blood Count 9.3 Red Blood Count 2.84 L Hemoglobin 10.9 L Hematocrit 33.2 L Mean Corpuscular Volume 116.9 H Mean Corpuscular Hemoglobin 38.4 H Mean Corpuscular Hemoglobin Concent 32.8 Red Cell Distribution Width 13.2 Platelet Count 173 Mean Platelet Volume 10.2 Neutrophils % 76.2 Lymphocytes % 14.4 L Monocytes % 7.4 Eosinophils % 0.9 Basophils % 0.2 Nucleated Red Blood Cells % 0.0 Neutrophils # 7.1 Lymphocytes # 1.3 Monocytes # 0.7 Eosinophils # 0.1 Basophils # 0.0 Nucleated Red Blood Cells # 0.0 Sodium Level 143 Potassium Level 3.5 Chloride Level 107 Carbon Dioxide Level 19 L Anion Gap 21 H Blood Urea Nitrogen 18 Creatinine 1.08 H Glucose Level 78 Calcium Level 9.0 Phosphorus Level 3.7 Magnesium Level 2.1 Total Bilirubin 22.0 H Direct Bilirubin 19.20 *H Indirect Bilirubin 2.8 H Aspartate Amino Transf (AST/SGOT) 141 H Alanine Aminotransferase (ALT/SGPT) 118 H Alkaline Phosphatase 423 H Total Protein 8.0 Albumin 3.5 Globulin 4.50 H Albumin/Globulin Ratio 0.77 Medications Medications Current Medications Duloxetine HCl (Cymbalta) 60 mg DAILY PO Last administered on 09/18/16 08:34; Admin Dose 60 MG; Start 09/12/16 at 09:00 Folic Acid (Folic Acid) 1 mg DAILY PO Last administered on 09/18/16 08:34; Admin Dose 1 MG; Start 09/12/16 at 09:00 Propranolol HCl (Inderal) 40 mg BID PO Last administered on 09/15/16 08:43; Admin Dose 40 MG; Start 09/11/16 at 21:00 Topiramate (Topamax) 100 mg BID PO Last administered on 09/18/16 08:36; Admin Dose 100 MG; Start 09/11/16 at 21:00 Ondansetron HCl (Zofran Tab) 4 mg Q6H PRN PO NAUSEA AND/OR VOMITING; Start at 15:00 Ondansetron HCl (Zofran Inj) 4 mg Q6H PRN IV NAUSEA AND/OR VOMITING Last administered on 09/15/16 21:27; Admin Dose 4 MG; Start 09/11/16 at 15:00 Acetaminophen/ Hydrocodone Bitart (Sieper (5/325)) 1 tab Q6H PRN PO MODERATE PAIN LEVEL 4-6 Last administered on 09/17/16 07:42; Admin Dose 1 TAB; Start at 15:00 Docusate Sodium (Colace) 100 mg Q12H PRN PO CONSTIPATION; Start 09/11/16 at 15: 00 Magnesium Hydroxide (Milk Of Mag) 30 ml DAILY PRN PO CONSTIPATION Last administered on 09/14/16 12:31; Admin Dose 30 ML; Start 09/11/16 at 15:00 Mirtazapine (Remeron) 15 mg HS PRN PO INSOMNIA Last administered on 09/13/16 03:14; Admin Dose 15 MG; Start 09/11/16 at 17:00 Prednisolone (Prednisolone) 40 mg DAILY PO Last administered on 09/18/16 08:35 ; Admin Dose 40 MG; Start 09/11/16 at 19:00; Stop 10/09/16 at 18:59 Miscellaneous Information (*Order Clarification Bulletin) MEDICATION REQUIRES CLARIFICATI... Q8H XX ; Start 09/12/16 at 08:30; Status Future Hold Furosemide (Lasix) 20 mg DAILY PO Last administered on 09/18/16 08:35; Admin Dose 20 MG; Start 09/14/16 at 09:00 Pantoprazole (Protonix Tab) 40 mg BID@06,18 PO Last administered on 09/18/16 06 :17; Admin Dose 40 MG; Start 09/16/16 at 18:00 Morphine Sulfate (morphine) 2 mg Q4H PRN IV SEVERE PAIN LEVEL 7-10; Start 09/17 at 15:00 KRISTAN CHRISTINE NP Sep 18, 2016 14:24
== END 2016-09-18 16:30 | disposition home health service (06) | DRG 432 ==
LOC: E/R 12:33 → TEL 14:32
PROVIDERS: ADMIT Internal Medicine; ATTEND Internal Medicine
PROC: 0W3P8ZZ Control Bleeding in Gastrointestinal Tract, Via Natural or Artificial Opening Endoscopic (ICD-10-PCS; principal; 2016-09-12 19:30)
DX: K70.30 Alcoholic cirrhosis of liver without ascites (principal); I85.11 Secondary esophageal varices with bleeding; R17 Unspecified jaundice; K76.6 Portal hypertension; F10.20 Alcohol dependence, uncomplicated; E87.6 Hypokalemia; E03.9 Hypothyroidism, unspecified; Z87.891 Personal history of nicotine dependence; K31.89 Other diseases of stomach and duodenum; G62.9 Polyneuropathy, unspecified; S92.211A Displaced fracture of cuboid bone of right foot, initial encounter for closed fracture; W19.XXXA Unspecified fall, initial encounter; Y92.009 Unspecified place in unspecified non-institutional (private) residence as the place of occurrence of the external cause
CPT/HCPCS: 36415; 71010; 73630; 73700; 74181; 76700; 80053; 83605; 83735; 84100; 84484; 85025; 85610; 85730; 86850; 86900; 86901; 87040; 93005; 96365; 96375; 96376; 97116; 97162; 97530; C9113; J0696; J2270; J2354; J2405; J3480; J7030; J7510

== ENCOUNTER 2016-09-25 11:27 | Outpatient (CLI) | payer OTHER ==
[~2016-09-25] VITALS: Ht 180.3 cm; Wt 86.6 kg
[~2016-09-25 11:27] MED LIST changes: -CITA10SO GTB; -DULO30CA47 PO; -ESTR1TAB80 PO; -FLUO40CA PO; -GABA-528 PO; -LEVO75TA5 PO; +LEVO88TA42 PO; +MIRT15TA5 PO; +PANT40TA3 PO; +PANT40TA4 PO; +PRED5TAB50 PO; -SPIR50TA PO; -THIA100T56 PO; +TOPI-25 PO; -TOPI25CA2 PO
[2016-09-25 11:30] VITALS: BP 109/58; PULSE 69; RESP 18; Ht 180.3 cm; Wt 86.6 kg
--- NOTE | 2016-09-25 12:36 | PN ---
Date/Time of Note Date/Time of Note DATE: 09/25/16 TIME: 12:26 Outpatient Progress Note Chief Complaint GI bleed/jaundice/cirrhosis/right foot pain/alcoholism/anxiety/gallstone// hypothyroidism HPI GI bleed/patient had recent admission with a GI bleed, patient had banding, patient is occasional some discomfort in the belly, Jaundice patient has severe jaundice, patient complains of severe itching, Cirrhosis/patient has cirrhosis of liver, alcohol-related, patient used to drink moderately heavy, patient has pruritus, also had splenomegaly, and patient also has stress of ascites, Right foot pain/patient had right foot pain, patient stated that patient had fracture, Alcoholism/patient used to drink moderately heavy alcohol, patient has not been drinking since hospitalization, Anxiety/patient anxious nervous and emotional, Gallstones/no nausea vomiting, patient has severe jaundice, abdominal pain, Hypothyroidism/no puffiness of her eyes, on medication, no side effect, Review of Systems Const: No Fever, no chills, no Wt. loss, moderately severe fatigue, poor appetite, no diaphoresis. Eyes: No pain, no discharge, no redness, no visual change, no foreign body patient has severe jaundice, ENT: No pain, no bleeding, no congestion, no sore throat, no dysphagia, no discharge or rhinitis. Lymph: No adenopathy, no tender nodes, no lymphedema. Resp: No SOB, no cough, no sputum, no wheezing, no chest pain. CV: No chest pain, no palpitaions, no PEDROZA, no PND, no edema. GI: Normal appetite, abdominal mild pain, no nausea, no vomiting, no diarrhea, no blood, no constipation patient has slight abdominal distention,. : No frequency, no urgency, no dysuria, no hematuria, no flank pain, no discharge, no bleeding. Musc: No bone/joint pain, no back pain, no neck pain, no knee pain, no restricted ROM. Skin: No rash, no skin lesions, no erythema, no laceration, no bruising, severe pruritus. And jaundice, yellow/skin, Neuro: No REAL, no dizziness, no syncope, no seizure, no focal-weakness. Endo: No polyuria, no polydypsia, no dry-skin, no temp-intolerance. Psych: No hallucinations, no depression, no anxiety, no suicidal ideation. Ext: No edema, no pain, no ulcer, no weakness right foot pain, Physical Exam Vital Signs Date Time Temp Pulse Resp B/P Pulse Ox O2 Delivery O2 Flow Rate FiO2 09/25/16 11:30 98.6 69 18 109/58 Room Air General Appearance: A 46 year-old female who appears well-developed, well- nourished, in no acute distress. HEENT: Head normocephalic, atraumatic. Pupils equal, round, reactive to light and accommodate. Sclerae are severely jaundice. Nasal turbinates pink without erythema or nasal discharge. Mucous membranes pink and moist without lesions. Oropharynx clear without any exudate or discharge. NECK: Supple. Trachea midline, No thyromegaly, No cervical lymphadenopathy, No mass, No carotid bruits, No JVD, Carotid pulses 2+ bilaterally. PULMONARY: Clear to auscultaion bilaterally, No retractions, Chest expansion symmetric bilaterally, no rales, no ronchi, no dulness on percussion. CARDIAC: Normal SI and S2, Regular rate and rythm, no murmur, gallop, or rub. GASTROINTESTINAL: Abdomen is soft, minimal-tender patient also has slight ascites,, Non Rigid, slight distention, Positive bowel sounds x4 quadrants, Liver slightly enlarged and spleen slightly enlarged, SKIN: Warm, dry, no rash, no bruise, no echmosis. Icteric, EXTREMITIES: Bilateral lower extremities normal, no edema, no phlabitus, pulse palpable, no contracture right foot covered. MUSCULOSKELETAL: Spine Normal, Non-tender, Normal range of motion, No swelling, no deformity, no clubbing, or cyanosis, the patient has no edema to bilateral lower extremities, dorsalis pedis pulses palpable bilaterally. NEUROLOGIC: The patient is awake, alert, oriented, responding to yes/no questions appropriately, moving all extremities, cranial nerve intact, reduced strenght, and power, normal coordination, wheelchair bound at present, unable to test gait. Patient has been walking with fast food sales assistant at home, Allergies Coded Allergies: naproxen (Verified Allergy, Severe, 09/11/16) codeine (Verified Adverse Reaction, Mild, NAUSEA, 09/11/16) morphine (Verified Adverse Reaction, Unknown, NAUSEA, 09/11/16) PMH cirrhosis/GI bleeding/alcoholism/anxiety/gallstones/hypothyroidism/overweight/ status post right knee surgery/depression /bending for GI bleeding/esophageal varices Social Hx Patient used to smoke and drink, patient has stopped both, Family Hx Noncontributory Assessment/Plan Impression GI bleeding/bending Jaundice Cirrhosis Right foot pain Alcoholism Anxiety Gallstone Hypothyroidism Plan I have serious discussion with the patient about her condition, and I have told her what is coming to her, patient was advised not to smoke not to drink, Patient need to follow with the primary care physician on regular basis, Patient may need to follow with the primary care physician and GI, I Tran prescribed Atarax 25 mg 3 times daily #30 for severe itching, Medications Home Meds Active Scripts Pantoprazole* (Pantoprazole*) 40 Mg Tablet., 40 MG PO BID@,, #60 4 Refills Prov:TAMIKA LOJA S. 09/18/16 Prednisolone* (Millipred*) 5 Mg Tab, 40 MG PO DAILY for 22 Days, #22 TAB Prov:TAMIKA LOJA S. 09/18/16 Reported Medications Mirtazapine* (Mirtazapine*) 15 Mg Tablet, 15 MG PO HS Y for INSOMNIA, TAB 09/11/16 Topiramate* (Topiramate*) 100 Mg Tablet, 100 MG PO BID, TAB 09/11/16 Levothyroxine Sodium* (Levoxyl*) 88 Mcg Tablet, 88 MCG PO BEFORE BREAKFAST, #30 TAB 09/11/16 Duloxetine Hcl* (Duloxetine Hcl*) 60 Mg Capsule.dr, 60 MG PO DAILY, #30 CAP 09/19/15 Propranolol Hcl* (Propranolol Hcl*) 40 Mg Tablet, 40 MG PO BID, TAB 09/19/13 Furosemide* (Furosemide*) 20 Mg Tablet, 20 MG PO DAILY 12/04/12 Folic Acid* (Folic Acid*) 1 Mg Tablet, 1 MG PO 12/04/12 Discontinued Reported Medications Pantoprazole* (Protonix*) 40 Mg Tablet., 40 MG PO DAILY, TAB 09/11/16 Lurasidone Hcl (LATUDA) 20 Mg Tablet, 20 MG PO DAILY, #30 TAB 09/11/16 PATRICK ELAINE MD Sep 25, 2016 12:36
== END 2016-09-25 17:00 | disposition home or self-care (01) ==
LOC: DCC 11:27
PROVIDERS: ATTEND Internal Medicine
DX: K92.2 Gastrointestinal hemorrhage, unspecified (principal); E03.9 Hypothyroidism, unspecified; K74.60 Unspecified cirrhosis of liver; F41.9 Anxiety disorder, unspecified; F10.20 Alcohol dependence, uncomplicated; M79.671 Pain in right foot

== ENCOUNTER 2016-10-09 11:26 | Outpatient (CLI) | payer OTHER ==
[~2016-10-09] VITALS: Ht 180.3 cm; Wt 90.9 kg
[~2016-10-09 11:26] MED LIST changes: +CITA-104 PO; +CITA10SO GTB; +CITA10TA72 PO; +DULO30CA47 PO; +ESTR1TAB80 PO; +FLUO40CA PO; +GABA-528 PO; +LACT20SO12 PO; +LEVO50TA64 PO; +LEVO75TA5 PO; +LORA-441 PO; +LORA1TAB PO; +LURA20TA PO; +LUTE20TA PO; +LUTE6TAB PO; +MULT-542 PO; +OMEP40CA6 PO; +ONDA8TAB83 PO; +PROP60CA PO; +RIFA550T4 PO; +SPIR50TA PO; +THIA100T56 PO; +THIA250T3 PO; +TOPI25CA2 PO; +TRAZ100T15 PO; +[UNRECOGNIZED DRUG - CODE] MC
[2016-10-09 11:39] VITALS: Ht 180.3 cm; Wt 90.9 kg
[2016-10-09 11:40] VITALS: BP 104/67; PULSE 70; RESP 18
--- NOTE | 2016-10-09 12:07 | PN ---
Date/Time of Note Date/Time of Note DATE: 10/09/16 TIME: 11:59 Outpatient Progress Note Chief Complaint Fall/cirrhosis/gallstones/hypothyroidism HPI Fall/patient felt slightly dizzy and fell down in the bathroom few days ago, no head injury, no apparent injury, no nausea vomiting, no weakness in upper or lower extremities, Cirrhosis/patient has cirrhosis of liver, no nausea or vomiting, patient still has jaundice, patient still has some ascites, patient is followed by [facility], Gallstones/no nausea vomiting, no abdominal pain, still has jaundice, Hypothyroidism/no puffiness of eyes, on medication, Review of Systems Const: No Fever, no chills, no Wt. loss, no Fatigue, slightly poor appetite, no diaphoresis. Eyes: No pain, no discharge, no redness, no visual change, patient has jaundice , no foreign body. ENT: No pain, no bleeding, no congestion, no sore throat, no dysphagia, no discharge or rhinitis. Lymph: No adenopathy, no tender nodes, no lymphedema. Resp: No SOB, no cough, no sputum, no wheezing, no chest pain. CV: No chest pain, no palpitaions, no PEDROZA, no PND, no edema. GI: Normal appetite, no pain, no nausea, no vomiting, no diarrhea, no blood, no constipation. Slight abdominal distention, : No frequency, no urgency, no dysuria, no hematuria, no flank pain, no discharge, no bleeding. Musc: No back pain, no neck pain, no knee pain, no restricted ROM. Skin: No rash, no skin lesions, no erythema, no laceration, no bruising, no pruritus. Neuro: No REAL, no dizziness, no syncope, no seizure, no focal-weakness. Endo: No polyuria, no polydypsia, no dry-skin, no temp-intolerance. Psych: No hallucinations, no depression, no anxiety, no suicidal ideation. Ext: Minimal bilateral ankle edema, no pain, no ulcer, no weakness. Physical Exam Vital Signs Date Time Temp Pulse Resp B/P Pulse Ox O2 Delivery O2 Flow Rate FiO2 10/09/16 11:40 97.5 70 18 104/67 100 Room Air General Appearance: A 46 year-old female who appears well-developed, well- nourished, in no acute distress. HEENT: Head normocephalic, atraumatic. Pupils equal, round, reactive to light and accommodate. Sclerae are jaundice. Nasal turbinates pink without erythema or nasal discharge. Mucous membranes pink and moist without lesions. Oropharynx clear without any exudate or discharge. NECK: Supple. Trachea midline, No thyromegaly, No cervical lymphadenopathy, No mass, No carotid bruits, No JVD, Carotid pulses 2+ bilaterally. PULMONARY: Clear to auscultaion bilaterally, No retractions, Chest expansion symmetric bilaterally, no rales, no ronchi, no dulness on percussion. CARDIAC: Normal SI and S2, Regular rate and rythm, no murmur, gallop, or rub. GASTROINTESTINAL: Abdomen is soft, non-tender, Non Rigid, positive bowel sounds x4 quadrants, Liver normal. Slight ascites, and abdominal distention, SKIN: Warm, dry, no rash, no bruise, no echmosis. EXTREMITIES: Bilateral lower extremities slight edema, no phlabitus, pulse palpable, no contracture. MUSCULOSKELETAL: Spine Normal, Non-tender, Normal range of motion, No swelling, no deformity, no clubbing, or cyanosis, the patient has no edema to bilateral lower extremities, dorsalis pedis pulses palpable bilaterally. NEUROLOGIC: The patient is awake, alert, oriented, responding to yes/no questions appropriately, moving all extremities, cranial nerve intact, normal strenght, normal power, normal coordination, wheelchair bound at present, unable to test gait. Allergies Coded Allergies: naproxen (Verified Allergy, Severe, 09/11/16) codeine (Verified Adverse Reaction, Mild, NAUSEA, 09/11/16) morphine (Verified Adverse Reaction, Unknown, NAUSEA, 09/11/16) PMH No change Social Hx No change Family Hx No change Assessment/Plan Impression Fall/cirrhosis/gallstones/hypothyroidism/leukocytosis/elevated alpha-fetoprotein Plan Patient education done about fall, explained to the patient that she was consuelo that she did not hit the head otherwise patient can have intracranial bleed leading to or long-term disability, fall precaution education done, and risks explained, Patient has been drinking a lot of fluid, advised to drink only whatever is necessary, Patient has been followed with [facility], and patient will follow with the primary care physician, patient has significant abnormal lab, patient WBC 13.7, hemoglobin 11.7, PT/INR 1.1, blood sugar 149, total bilirubin 16.1, alpha- fetoprotein L3 15, slightly high, alpha-fetoprotein regular 5.4 normal up to 4.5 , Patient to follow with primary care and [facility], Patient very high risk for repeated admission, fall, and sepsis, discussed with the patient and friend, may need to check serum ammonia level, discussed with the patient, Prescription given, for serum ammonia level, Medications Home Meds Active Scripts Pantoprazole* (Pantoprazole*) 40 Mg Tablet., 40 MG PO BID@,18, #60 4 Refills Prov:TAMIKA LOJA S. 09/18/16 Prednisolone* (Millipred*) 5 Mg Tab, 40 MG PO DAILY for 22 Days, #22 TAB Prov:TAMIKA LOJA S. 09/18/16 Reported Medications Mirtazapine* (Mirtazapine*) 15 Mg Tablet, 15 MG PO HS Y for INSOMNIA, TAB 09/11/16 Topiramate* (Topiramate*) 100 Mg Tablet, 100 MG PO BID, TAB 09/11/16 Levothyroxine Sodium* (Levoxyl*) 88 Mcg Tablet, 88 MCG PO BEFORE BREAKFAST, #30 TAB 09/11/16 Duloxetine Hcl* (Duloxetine Hcl*) 60 Mg Capsule.dr, 60 MG PO DAILY, #30 CAP 09/19/15 Propranolol Hcl* (Propranolol Hcl*) 40 Mg Tablet, 40 MG PO BID, TAB 09/19/13 Furosemide* (Furosemide*) 20 Mg Tablet, 20 MG PO DAILY 12/04/12 Folic Acid* (Folic Acid*) 1 Mg Tablet, 1 MG PO 12/04/12 PATRICK ELAINE MD Oct 09, 2016 12:07
== END 2016-10-09 16:47 | disposition home or self-care (01) ==
LOC: DCC 11:26
PROVIDERS: ATTEND Internal Medicine
DX: R42 Dizziness and giddiness (principal); K74.60 Unspecified cirrhosis of liver; K80.80 Other cholelithiasis without obstruction; E03.9 Hypothyroidism, unspecified; Z91.81 History of falling
CPT/HCPCS: G0463

== ENCOUNTER 2018-11-01 05:10 | Emergency (ER) | payer OTHER ==
[~2018-11-01] VITALS: Ht 177.8 cm; Wt 107.8 kg
[~2018-11-01 05:10] MED LIST changes: -CITA-104 PO; -CITA10SO GTB; -CITA10TA72 PO; -DULO30CA47 PO; -DULO60CA59 PO; +DULO60CA60 PO; -ESTR1TAB80 PO; -FLUO40CA PO; -GABA-528 PO; -LACT20SO12 PO; -LEVO50TA64 PO; -LEVO75TA5 PO; -LORA-441 PO; -LORA1TAB PO; -LURA20TA PO; -LUTE20TA PO; -LUTE6TAB PO; -MULT-542 PO; -OMEP40CA6 PO; -ONDA8TAB83 PO; -PANT40TA3 PO; -PROP60CA PO; -RIFA550T4 PO; -SPIR50TA PO; -THIA100T56 PO; -THIA250T3 PO; -TOPI-25 PO; +TOPI100T11 PO; -TOPI25CA2 PO; -TRAZ100T15 PO; -[UNRECOGNIZED DRUG - CODE] MC
[2018-11-01 05:13] VITALS: Ht 177.8 cm; Wt 107.8 kg
[2018-11-01] MEDS ORDERED: ONDANSETRON 4 MG INJ IV STA ×2 (05:17→06:59)
[2018-11-01] MEDS ORDERED: morphine 10 MG INJ IV ONE (06:00)
[2018-11-01 08:29] VITALS: BP 141/84; PULSE 84; RESP 18
== END 2018-11-01 08:36 | disposition home or self-care (01) ==
LOC: E/R 05:10
DX: K80.20 Calculus of gallbladder without cholecystitis without obstruction (principal); E03.9 Hypothyroidism, unspecified; F17.210 Nicotine dependence, cigarettes, uncomplicated; K42.9 Umbilical hernia without obstruction or gangrene; K70.31 Alcoholic cirrhosis of liver with ascites; F10.10 Alcohol abuse, uncomplicated; D61.818 Other pancytopenia; Y90.4 Blood alcohol level of 80-99 mg/100 ml
CPT/HCPCS: 71045; 76705; 80053; 80307; 83690; 84484; 85025; 86850; 86900; 86901; J2270; J2405; 93005; 96374; 96375